=== PATIENT | female | born 1990 | race African-American/Black ===

== ENCOUNTER 2016-10-08 21:34 | Emergency (ER) | payer MEDICAID ==
[2016-10-08 21:55] VITALS: BP 112/64
--- NOTE | 2016-10-08 21:57 | ER Document Report ---
ED Medical Screen (RME) - General Stated Complaint: FOOT PAIN Mode of Arrival: Wheelchair Information source: Patient Notes: Patient presents to the emergency department with complaints of left foot pain. C/O rolled foot yesterday. C/O pain when walking. Taking ibuprofen without pain. He I have greeted and performed a rapid initial assessment of this patient. A comprehensive ED assessment and evaluation of the patient, analysis of test results and completion of the medical decision making process will be conducted by additional ED providers. Past Medical History - Immunizations Hx Diphtheria, Pertussis, Tetanus Vaccination: Yes
[2016-10-08] MEDS ORDERED: OXYCODONE-ACETAMINOPHEN 5-325 MG TABLET PO ONE (23:22)
--- NOTE | 2016-10-08 23:28 | ER Document Report ---
ED Extremity Problem, Lower - General Chief Complaint: Foot Pain Stated Complaint: FOOT PAIN Mode of Arrival: Wheelchair Information source: Patient Notes: Patient is a 25-year-old female who presents to the ER today for injury to left foot yesterday while she was running, chasing her children outside, playing and rolled her foot inwards. Patient states that she has been hurting since that time and that it "hurts a lot" to bear weight on the foot. She denies any swelling, bruising, numbness or tingling. TRAVEL OUTSIDE OF THE [place] IN LAST 30 DAYS: No - Related Data Allergies/Adverse Reactions: No Known Allergies Allergy (Verified 10/08/16 21:56) Past Medical History - General Information source: Patient - Social History Smoking Status: Never Smoker Chew tobacco use (# tins/day): No Frequency of alcohol use: None Drug Abuse: None Family History: Reviewed & Not Pertinent Patient has suicidal ideation: No Patient has homicidal ideation: No Renal/ Medical History: Denies: Hx Peritoneal Dialysis - Immunizations Hx Diphtheria, Pertussis, Tetanus Vaccination: Yes Review of Systems - Review of Systems Constitutional: No symptoms reported EENT: No symptoms reported Cardiovascular: No symptoms reported Respiratory: No symptoms reported Gastrointestinal: No symptoms reported Genitourinary: No symptoms reported Female Genitourinary: No symptoms reported Musculoskeletal: See HPI Skin: No symptoms reported Hematologic/Lymphatic: No symptoms reported Neurological/Psychological: No symptoms reported Physical Exam - Vital signs Vitals: Temp Pulse Resp BP Pulse Ox 99.2 F 64 18 112/64 100 10/08/16 21:52 10/08/16 21:52 10/08/16 21:52 10/08/16 21:52 10/08/16 21:52 - Notes Notes: PHYSICAL EXAMINATION: GENERAL: Obviously uncomfortable, but in no acute distress. HEAD: Atraumatic, normocephalic. EYES: Pupils equal round and reactive to light, extraocular movements intact, sclera anicteric, conjunctiva are normal. NECK: Normal range of motion, supple without lymphadenopathy LUNGS: CTAB and equal. No wheezes rales or rhonchi. HEART: Regular rate and rhythm without murmurs EXTREMITIES: Normal range of motion but with pain to the dorsal left foot, tender over dorsal left foot entirely but moreso to the center of the foot over tarsal bones, no pitting edema. No cyanosis. NEUROLOGICAL: Cranial nerves grossly intact. Normal sensory/motor exams. PSYCH: Normal mood, normal affect. SKIN: Warm, Dry, normal turgor, no ecchymosis, rashes or lesions noted Course - Re-evaluation Re-evalutation: 10/08/16 23:26 X-ray reveals a possible navicular fracture with a linear lucency seen on x- ray. Patient placed in an Jose Alfredo wrap in a postop shoe, given crutches, pain medication and orthopedic information to follow-up with. She states she will call first thing in the morning. - Vital Signs Vital signs: Temp Pulse Resp BP Pulse Ox 99.2 F 64 18 112/64 100 10/08/16 21:52 10/08/16 21:52 10/08/16 21:52 10/08/16 21:52 10/08/16 21:52 Discharge - Discharge Clinical Impression: Closed navicular fracture of left foot Qualifiers: Encounter type: initial encounter Fracture alignment: nondisplaced Qualified Code(s): S92.255A - Nondisplaced fracture of navicular [scaphoid] of left foot, initial encounter for closed fracture Condition: Stable Disposition: HOME, SELF-CARE Additional Instructions: Return immediately for any new or worsening symptoms. Follow up with orthopedics, call tomorrow to make followup appointment. Orthopedic Office [facility] [address] [place] [address] phone: [phone] Prescriptions: Oxycodone HCl/Acetaminophen [Percocet 5-325 mg Tablet] 1 - 2 tab PO Q4H PRN #15 tablet PRN Reason:
== END 2016-10-09 01:05 | disposition home or self-care (01) ==
LOC: ER 21:34
DX: S92.255A Nondisplaced fracture of navicular [scaphoid] of left foot, initial encounter for closed fracture (principal); M79.672 Pain in left foot; X50.0XXA Overexertion from strenuous movement or load, initial encounter; Y93.89 Activity, other specified; Y92.007 Garden or yard of unspecified non-institutional (private) residence as the place of occurrence of the external cause
CPT/HCPCS: 99283

== ENCOUNTER 2017-02-24 19:52 | Emergency (ER) | payer MEDICAID ==
--- NOTE | 2017-02-24 20:59 | RADIOLOGY REPORT (SQ) ---
EXAM DESCRIPTION: SHOULDER RIGHT 2 OR MORE VIEWS COMPLETED DATE/TIME: 02/24/2017 8:52 pm REASON FOR STUDY: injury COMPARISON: None. NUMBER OF VIEWS: Three views. TECHNIQUE: Internal rotation, external rotation, and Y view images acquired of the right shoulder. LIMITATIONS: None. FINDINGS: MINERALIZATION: Normal. BONES: No acute fracture or dislocation. No worrisome bone lesions. JOINTS: No dislocation. VISUALIZED LUNGS AND RIBS: No pneumothorax. No rib fracture. SOFT TISSUES: No radiopaque foreign body. OTHER: No other significant finding. IMPRESSION: NEGATIVE STUDY OF THE RIGHT SHOULDER. NO RADIOGRAPHIC EVIDENCE OF ACUTE INJURY. TECHNICAL DOCUMENTATION: JOB ID: [id number]- All Rights Reserved
[2017-02-24] MEDS ORDERED: DIAZEPAM 5 MG TABLET PO ONE (21:15)
[2017-02-24] MEDS ORDERED: IBUPROFEN 600 MG TABLET PO ONE (21:15)
--- NOTE | 2017-02-24 21:20 | ER Document Report ---
HPI - HPI Patient complains to provider of: Right shoulder injury Pain Level: 5 Context: Patient is a 26-year-old female who comes emergency department for chief complaint of right shoulder pain. She states yesterday she was lifting furniture up and down a stairway, she states she also ran into the wall with her right shoulder. She denies feeling a sharp pain or a pop, she states that symptoms worsened today. She denies any other injuries or locations of pain. LMP within the past month - DERM Skin Color: Normal Past Medical History - General Information source: Patient - Social History Smoking Status: Never Smoker Drug Abuse: None Lives with: Family Family History: Reviewed & Not Pertinent Patient has suicidal ideation: No Patient has homicidal ideation: No - Medical History Medical History: Negative Renal/ Medical History: Denies: Hx Peritoneal Dialysis Surgical Hx: Negative - Immunizations Hx Diphtheria, Pertussis, Tetanus Vaccination: Yes Vertical Provider Document - CONSTITUTIONAL General Appearance: WD/WN - Patient holding her right shoulder close to her body but otherwise she does not appear to be in any distress - INFECTION CONTROL TRAVEL OUTSIDE OF THE [place] IN LAST 30 DAYS: No - HEENT HEENT: Atraumatic, Normocephalic - NECK Neck: Normal Inspection - RESPIRATORY Respiratory: Breath Sounds Normal, No Respiratory Distress O2 Sat by Pulse Oximetry: 100 - CARDIOVASCULAR Cardiovascular: Regular Rate, Regular Rhythm - GI/ABDOMEN Gastrointestinal: Abdomen Soft, Abdomen Non-Tender - BACK Back: Normal Inspection - MUSCULOSKELETAL/EXTREMETIES Musculoskeletal/Extremeties: MAEW, FROM, Tender - Patient with pain lifting her arm up in full range of motion but she can perform full range of motion with the right arm, there is tenderness over the right AC joint and also over the posterior aspect of the shoulder, no ecchymosis, deformity, or other abnormality. Normal distal neurovascular exam. - NEURO Level of Consciousness: Awake, Alert, Appropriate Course - Re-evaluation Re-evalutation: x-ray imaging shows no acute abnormality. Suspect patient sprained her shoulder. Unclear if rotator cuff tear, but seems unlikely with full ROM. patient was given a sling after discussion, shown to take it out regularly, discussed treatment, discussed follow-up, discussed return precautions. Patient states understanding and agreement. - Vital Signs Vital signs: Temp Pulse Resp BP Pulse Ox 98.8 F 61 16 123/71 100 02/24/17 20:06 02/24/17 20:06 02/24/17 20:06 02/24/17 20:06 02/24/17 20:06 Procedures - Immobilization right shoulder Pre-Proc Neuro Vasc Exam: Normal Immobilizer type: Sling Performed by: PCT Post-Proc Neuro Vasc Exam: Normal Alignment checked and good: Yes Discharge - Discharge Clinical Impression: Right shoulder injury Qualifiers: Encounter type: initial encounter Qualified Code(s): S49.91XA - Unspecified injury of right shoulder and upper arm, initial encounter Condition: Stable Disposition: HOME, SELF-CARE Additional Instructions: X-ray does not show dislocation, fracture, or shoulder separation. Examination is consistent with a sprain of the AC joint of the shoulder and strain of the rotator cuff. Use the sling for comfort if needed, take out frequently during the day and perform range of motion exercises as shown to avoid a frozen shoulder Take the naproxen and Robaxin as directed, apply ice to the shoulder 3-4 times a day for 10-15 minutes. Follow up with primary care. Orthopedic follow-up if shoulder pains continue Return to emergency department for any concerning or worsening symptoms Prescriptions: Methocarbamol [Robaxin 750 mg Tablet] 750 mg PO Q6 #20 tablet Naproxen 500 mg PO BID #20 tablet Referrals: MARCELA SPICER MD [ACTIVE STAFF] - Follow up as needed
[2017-02-24 21:25] VITALS: BP 114/81
== END 2017-02-24 21:26 | disposition home or self-care (01) ==
LOC: ER 19:52
DX: S49.91XA Unspecified injury of right shoulder and upper arm, initial encounter (principal); M25.511 Pain in right shoulder; W22.01XA Walked into wall, initial encounter
CPT/HCPCS: 99283; 73030; J3490 ×2

== ENCOUNTER 2018-03-27 15:40 | Emergency (ER) | payer MEDICAID ==
[2018-03-27 16:07] VITALS: BP 98/56
[2018-03-27] MEDS ORDERED: IBUPROFEN 600 MG TABLET PO ONE (16:37)
--- NOTE | 2018-03-27 16:40 | ER Document Report ---
ED General - General Chief Complaint: Back Pain Stated Complaint: BACK PAIN TRAVEL OUTSIDE OF THE [place] IN LAST 30 DAYS: No - HPI Notes: 27-year-old female presents with right thoracic back pain. States she woke up this morning with soreness in her right parathoracic region near the upper thoracic spine. No direct trauma but is been quite active with her kids. Worse when she makes a pushing or rolling motion. No fever, chills or sweats. No direct trauma. Gradual onset. Nonradiating. No other modifying factors, no other associated symptoms, no other provocative or palliative factors. - Related Data Allergies/Adverse Reactions: No Known Allergies Allergy (Verified 10/08/16 21:56) Past Medical History - Social History Smoking Status: Never Smoker Family History: Reviewed & Not Pertinent - Medical History Medical History: Negative Renal/ Medical History: Denies: Hx Peritoneal Dialysis - Immunizations Hx Diphtheria, Pertussis, Tetanus Vaccination: Yes Review of Systems - Review of Systems Notes: Review of systems as in history of present illness, otherwise no significant headache, chest pain, abdominal pain. Physical Exam - Vital signs Vitals: Temp Pulse Resp BP Pulse Ox 98.5 F 67 18 98/56 L 99 03/27/18 16:05 03/27/18 16:05 03/27/18 16:05 03/27/18 16:05 03/27/18 16:05 - Notes Notes: General: Well devloped, no acute distress. HEENT: Normocephalic, atraumatic. Pupils equal round reactive to light. Mucosa moist. No JVD. Chest: No trauma, normal excursion. Respiratory: Good air exchange, normal excursion. Cardiac: Regular rhythm Abdomen: Soft, benign. Nondistended. Back: No asymmetry or gross abnormality. There is reproducible right parathoracic muscle tenderness, and pain with range of motion. No point vertebral tenderness Motor: Grossly normal power and tone. Neurologic: Alert, nonfocal. Vascular: Well perfused Skin: No petechiae or purpura Course - Re-evaluation Re-evalutation: 03/27/18 16:38 Well-appearing female with likely thoracic muscle strain, no direct trauma, no bony tenderness. Will proceed with treatment with Flexeril, NSAIDs, outpatient follow-up. - Vital Signs Vital signs: Temp Pulse Resp BP Pulse Ox 98.5 F 67 18 98/56 L 99 03/27/18 16:05 03/27/18 16:05 03/27/18 16:05 03/27/18 16:05 03/27/18 16:05 Discharge - Discharge Clinical Impression: Thoracic myofascial strain Qualifiers: Encounter type: initial encounter Qualified Code(s): S29.019A - Strain of muscle and tendon of unspecified wall of thorax, initial encounter Condition: Good Disposition: HOME, SELF-CARE Instructions: Muscle Strain ([facility]) Prescriptions: Cyclobenzaprine HCl [Flexeril 10 mg Tablet] 10 mg PO TIDP PRN #15 tab NS PRN Reason: Naproxen 500 mg PO Q12 PRN #12 tablet PRN Reason:
== END 2018-03-27 16:51 | disposition home or self-care (01) ==
LOC: ER 15:40
DX: S29.019A Strain of muscle and tendon of unspecified wall of thorax, initial encounter (principal); M54.9 Dorsalgia, unspecified; M54.6 Pain in thoracic spine; X58.XXXA Exposure to other specified factors, initial encounter
CPT/HCPCS: 99283; J3490

== ENCOUNTER 2018-11-05 13:43 | Emergency (ER) | payer MEDICAID ==
[2018-11-05 13:56] VITALS: BP 95/57
[2018-11-05] MEDS ORDERED: LIDOCAINE 2% VISCOUS SOLN 20 ML UDCUP PO ONE (14:55)
[2018-11-05] MEDS ORDERED: AMOXICILLIN TRIHYDRATE 500 MG CAPSULE PO ONE (14:55)
[2018-11-05] MEDS ORDERED: IBUPROFEN 800 MG TABLET PO ONE (14:55)
--- NOTE | 2018-11-05 15:00 | ER Document Report ---
ED Oral Problem - General Chief Complaint: Toothache Stated Complaint: TOOTH PAIN Time Seen by Provider: 11/05/18 14:29 Mode of Arrival: Ambulatory Information source: Patient Notes: 27-year-old female presented to ED for complaint of dental pain since yesterday. She states she has a dental appointment next week to have the rest of her teeth pulled out. She states she had 3 babies in quick succession and the doctor told her that her dental pain and problems is because she did not take her vitamins as she was instructed in this because all of her teeth to decay. Mother states she also smokes does not take vitamins as he does not eat properly and does not brush her teeth. Patient is alert oriented respirations regular and unlabored speaking in full sentences. TRAVEL OUTSIDE OF THE [place] IN LAST 30 DAYS: No - HPI Patient complains to provider of: Toothache Onset: Other - Interpreted by the time Onset: Gradual Quality of pain: Sharp, Throbbing Severity: Severe Pain Level: 5 Associated symptoms: Toothache Worsened by: Cold Relieved by: Nothing Similar symptoms previously: Yes Recently seen / treated by doctor/dentist: Yes - Related Data Allergies/Adverse Reactions: No Known Allergies Allergy (Verified 11/05/18 13:44) Past Medical History - General Information source: Patient - Social History Smoking Status: Current Every Day Smoker Cigarette use (# per day): Yes - 4 cigs a day Chew tobacco use (# tins/day): No Smoking Education Provided: Yes - 4 min Frequency of alcohol use: None Drug Abuse: None Lives with: Family Family History: Reviewed & Not Pertinent Patient has suicidal ideation: No Patient has homicidal ideation: No - Past Medical History Cardiac Medical History: Reports: None Pulmonary Medical History: Reports: None EENT Medical History: Reports: None Neurological Medical History: Reports: None Endocrine Medical History: Reports: None Renal/ Medical History: Reports: None Malignancy Medical History: Reports: None GI Medical History: Reports: None Musculoskeletal Medical History: Reports None Skin Medical History: Reports None Psychiatric Medical History: Reports: None Traumatic Medical History: Reports: None Infectious Medical History: Reports: None Past Surgical History: Reports: Hx Oral Surgery - Immunizations Immunizations up to date: Yes Hx Diphtheria, Pertussis, Tetanus Vaccination: Yes Review of Systems - Review of Systems Constitutional: No symptoms reported EENT: Mouth pain, Dental problem Cardiovascular: No symptoms reported Respiratory: No symptoms reported Gastrointestinal: No symptoms reported Genitourinary: No symptoms reported Female Genitourinary: No symptoms reported Musculoskeletal: No symptoms reported Skin: No symptoms reported Hematologic/Lymphatic: No symptoms reported Neurological/Psychological: No symptoms reported Physical Exam - Vital signs Vitals: Temp Pulse Resp BP Pulse Ox 99.1 F 84 16 95/57 L 99 11/05/18 13:55 11/05/18 13:55 11/05/18 13:55 11/05/18 13:55 11/05/18 13:55 Interpretation: Normal - General General appearance: Appears well, Alert - HEENT Head: Normocephalic, Atraumatic Eyes: Normal Pupils: PERRL Ears: Normal External canal: Normal Tympanic membrane: Normal Sinus: Normal Nasal: Normal Mouth/Lips: Caries Teeth diagram: 1 - These are the only teeth in her mouth and they are black a down to the gum. She states she has an appointment to get the rest of these teeth removed in another week but the pain is severe today. Pharynx: Normal Neck: Normal - Respiratory Respiratory status: No respiratory distress Chest status: Nontender Breath sounds: Normal Chest palpation: Normal - Cardiovascular Rhythm: Regular Heart sounds: Normal auscultation Murmur: No - Abdominal Inspection: Normal Distension: No distension Bowel sounds: Normal Tenderness: Nontender Organomegaly: No organomegaly - Back Back: Normal, Nontender - Extremities General upper extremity: Normal inspection, Nontender, Normal color, Normal ROM, Normal temperature General lower extremity: Normal inspection, Nontender, Normal color, Normal ROM, Normal temperature, Normal weight bearing. No: Thania's sign - Neurological Neuro grossly intact: Yes Cognition: Normal Orientation: AAOx4 Eloise Coma Scale Eye Opening: Spontaneous [place] Coma Scale Verbal: Oriented Eloise Coma Scale Motor: Obeys Commands Eloise Coma Scale Total: 15 Speech: Normal Motor strength normal: LUE, RUE, LLE, RLE Sensory: Normal - Psychological Associated symptoms: Normal affect, Normal mood - Skin Skin Temperature: Warm Skin Moisture: Dry Skin Color: Normal Course - Re-evaluation Re-evalutation: 11/05/18 15:06 Presentation is most consistent with likely an infected tooth. Airway is patent. Vitals within normal limits. Patient is able swallow without any difficulty. There is no significant facial swelling. No evidence of Jam angina, apical abscess, or airway obstruction. Patient will be started on antibiotics. I've instructed to follow-up with dentistry as earliest ability for definitive management. At this time will discharge with return precautions and follow-up recommendations. Verbal discharge instructions given a the bedside and opportunity for questions given. Medication warnings reviewed. Patient is in agreement with this plan and has verbalized understanding of return precautions and the need for primary care follow-up in the next 24-72 hours. - Vital Signs Vital signs: Temp Pulse Resp BP Pulse Ox 99.1 F 84 16 95/57 L 99 11/05/18 13:55 11/05/18 13:55 11/05/18 13:55 11/05/18 13:55 11/05/18 13:55 Discharge - Discharge Clinical Impression: Pain due to dental caries Condition: Stable Disposition: HOME, SELF-CARE Additional Instructions: TOOTHACHE: Your pain is due to dental decay. The tooth must be repaired in order for you to feel better. You will, therefore, be referred to a dentist. We do not have dentists on the staff at [facility]. Severe swelling or drainage around a tooth usually means a dental abscess. This also requires evaluation and treatment by the dentist, but antibiotics may be prescribed while awaiting dental treatment. You should be rechecked immediately if you develop major swelling of the face, increasing pain, a lump in the jaw or gums, headache, difficulty swallowing, or fever. Amoxicillin Amoxicillin is a member of the penicillin family. It covers the germs likely to cause ear, bronchial, and urinary infections better than plain penicillin. Amoxicillin can be taken without regard to meals. Nausea after taking the medication is rare, but can occur. Diarrhea can occur, particularly in small children. Vaginal yeast infections and oral thrush in infants are also common. Contact your physician if these problems occur. Allergy to penicillins is common. If you have had an allergic reaction to any drug of the penicillin family, you should never take any other penicillin. Notify your doctor at once if you develop hives, itching, swelling, faintness, or shortness of breath. Less serious side effects can include nausea or diarrhea. Ibuprofen Ibuprofen is an excellent, safe drug for pain control. In addition, it has potent antiinflammatory effects which are beneficial, especially in the treatment of injuries, arthritis, or tendonitis. It's best to take ibuprofen with food. Persons with ulcer disease or allergy to aspirin should notify their physician of this before taking ibuprofen. Take the medication exactly as prescribed. Don't take additional doses unless instructed to do so by your doctor. If you develop wheezing, shortness of breath, hives, faintness, stomach pain, vomiting, or dark black stools, retur n for re-evaluation at once. You have been given a syringe of viscous lidocaine. You can split a small amount on your finger and rub it on the gums where your dental pain is every 3-4 hours for your dental pain. Please be sure to keep your appointment with the dentist. FOLLOW-UP CARE: You have been referred for follow-up care to the dentists listed below. Call the dentists office for an appointment as you were instructed or within the next two days. If you experience worsening or a significant change in your symptoms, notify the physician immediately or return to the Emergency Department at any time for re-evaluation. [facility] [address] [place], [place] [phone] [facility] [address] [place] [address] Formerly [facility] [address] [facility] [address] [facility] [address] [facility] [email or web address] [address] [place] [address] Wednesday- 8:00am to 5:00 pm Will see patients from other [facility]. Charges based on income and family size and accepts Medicare, Medicaid, and Insurances Will pull molars [facility]ics [facility] [id number] Hours of Operation 8:00 am - 4:30 pm weekdays The following dental offices accept Medicaid: [facility] Dr. Mitchell Dr. Mao Dr. Orellana Dr. Juan Jose Juan Mejia, [place], and Bubba oral surgery Dr. Lima ([place]) Dr. Stanton ([place]) [facility] Drs. Garcia and Dwayne ([place]) Dr. Hall ([place]) [facility] Dr. Leigh ([place]) Drs. [place] and ([place]) Medicaid Care Line Prescriptions: Amoxicillin Trihydrate [Amoxil 875 mg Tablet] 1 tab PO BID #20 tablet Ibuprofen [Motrin 800 mg Tablet] 800 mg PO Q8H PRN #30 tab PRN Reason: Forms: Smoking Cessation Education
== END 2018-11-05 15:37 | disposition home or self-care (01) ==
LOC: ER 13:43
DX: K02.9 Dental caries, unspecified (principal); K08.89 Other specified disorders of teeth and supporting structures; F17.210 Nicotine dependence, cigarettes, uncomplicated; Z71.6 Tobacco abuse counseling
CPT/HCPCS: 99406; 99282; J3490 ×2

== ENCOUNTER 2019-11-30 20:46 | Inpatient (IN) | payer BC, MEDICAID ==
[2019-11-30] MEDS ORDERED: NORMAL SALINE 1000 ML 1,000 ML IV ONE (23:53)
[2019-11-30] MEDS ORDERED: ONDANSETRON HCL INJ/PF 4 MG/2 ML SDV IV ONE (23:54)
--- NOTE | 2019-11-30 23:56 | ER Document Report ---
ED Fever - General Chief Complaint: Fever Stated Complaint: FEVER Time Seen by Provider: 11/30/19 23:40 Mode of Arrival: Medic Information source: Patient Notes: Patient presents stating that she had chills and body aches that started yesterday. Patient states she has had some nausea. Patient denies any vomiting or diarrhea. Patient denies any cough or cold symptoms. Patient came via EMS and had a fever of 103. Patient had been given a liter of fluids prior to arrival. Patient denies any cough or congestion symptoms. Patient denies any abdominal pain. Patient states that occasionally she has had some discomfort with urination. TRAVEL OUTSIDE OF THE [place] IN LAST 30 DAYS: No - HPI Onset: Yesterday Onset/Duration: Worse Quality of pain: Achy Pain Level: 3 Context: Nausea/vomiting. denies: Congestion, Cough Associated symptoms: Chills, Fever, Nausea, Sweating. denies: Nonproductive cough, Productive cough, Diarrhea, Vomiting, Shortness of breath Similar symptoms previously: No Recently seen / treated by doctor: No - Related Data Allergies/Adverse Reactions: No Known Allergies Allergy (Verified 09/05/19 18:45) Past Medical History - General Information source: Patient - Social History Smoking Status: Never Smoker Frequency of alcohol use: None Drug Abuse: None Occupation: None Family History: Reviewed & Not Pertinent Patient has suicidal ideation: No Patient has homicidal ideation: No - Medical History Medical History: Negative Renal/ Medical History: Denies: Hx Peritoneal Dialysis Past Surgical History: Reports: Hx Oral Surgery - Immunizations Immunizations up to date: Yes Hx Diphtheria, Pertussis, Tetanus Vaccination: Yes Review of Systems - Review of Systems Constitutional: Chills, Fever EENT: No symptoms reported Cardiovascular: Dizziness. denies: Chest pain Respiratory: No symptoms reported. denies: Cough, Short of breath Gastrointestinal: Nausea. denies: Abdominal pain, Diarrhea, Vomiting Genitourinary: Dysuria, Flank pain. denies: Hematuria Female Genitourinary: No symptoms reported. denies: Vaginal discharge Musculoskeletal: Back pain Skin: No symptoms reported Hematologic/Lymphatic: No symptoms reported Neurological/Psychological: No symptoms reported Physical Exam - Vital signs Vitals: Resp 12 11/30/19 20:56 - General General appearance: Alert In distress: None - HEENT Head: Normocephalic, Atraumatic Eyes: Normal Conjunctiva: Normal Ears: Normal External canal: Normal Nasal: Normal Mouth/Lips: Normal Mucous membranes: Normal Pharynx: Normal. No: Erythema Neck: Normal, Supple. No: Lymphadenopathy, Meningismus - Respiratory Respiratory status: No respiratory distress Chest status: Nontender Breath sounds: Normal. No: Rales, Rhonchi, Stridor, Wheezing Chest palpation: Normal - Cardiovascular Rhythm: Regular Heart sounds: S1 appreciated, S2 appreciated - Abdominal Inspection: Normal Distension: No distension Bowel sounds: Normal Tenderness: Nontender Organomegaly: No organomegaly - Back Back: CVA tenderness - Right - Extremities General upper extremity: Normal inspection, Normal ROM General lower extremity: Normal inspection, Normal ROM - Neurological Neuro grossly intact: Yes Cognition: Normal [place] Coma Scale Eye Opening: Spontaneous [place]oise Coma Scale Verbal: Oriented [place] Coma Scale Motor: Obeys Commands [place] Coma Scale Total: 15 - Psychological Associated symptoms: Normal affect, Normal mood - Skin Skin Temperature: Warm Skin Moisture: Dry Skin Color: Normal Course - Re-evaluation Re-evalutation: 12/01/19 01:00 Patient bradycardic and hypotensive. IV fluids continue to infuse. Patient with UTI, mild leukocytosis and right flank pain worrisome for pyelonephritis. Patient sinus bradycardia with a rate of 45. 12/01/19 01:[address] Vickers regarding need for admission, Dr. Vickers was concerned with patient's hypotension and request consultation with recycle driver. Spoke with Jabier Rosen NP who agrees to evaluate patient for admission. 12/01/19 02:20 Consulted with Jabier Rosen NP who evaluated patient. Recommends additional 1 to 2 L of IV fluid at this time to help with patient's dehydration. Patient's current blood pressure is 130/97, he does not feel that patient requires ICU placement at this time. He is agreeable to be consulted again if patient becomes hypotensive. 12/01/19 03:09 Patient continues with pressure 83/44. Patient reports some nausea as well as right flank tenderness. Dr. llamas to bedside for examination. Patient's IV fluids changed to a maintenance rate. 12/01/19 06:20 Ultrasound report reviewed, patient with normal LFTs and no elevation of lipase, no concern for any acute cholecystitis or choledocholithiasis. Patient without any abdominal tenderness. Patients blood pressure 90s/50s at this time. Consulted with Dr. Vickers for admission, Dr. Vickers states that he will pass information along and that a dayshift hospitalist will be down to see patient and make a bed determination after they have evaluated patient. 12/01/19 08:14 Jabier LEMOS spoke with the hospitalist who states that Dr. Avila she will be by to evaluate patient. - Vital Signs Vital signs: Temp Pulse Resp BP Pulse Ox 98.7 F 46 L 16 82/40 L 99 12/01/19 23:40 12/02/19 02:00 12/01/19 23:40 12/01/19 23:40 12/01/19 23:40 - Laboratory Result Diagrams: 12/01/19 00:21 12/01/19 00:21 Laboratory results interpreted by me: 11/30/19 12/01/19 12/01/19 22:49 00:21 00:21 WBC 12.6 H Hgb 11.1 L Hct 32.5 L Absolute Neuts (auto) 9.5 H Sodium 136.8 L Albumin 3.4 L Urine Protein 30 H Urine Blood LARGE H Urine Nitrite POSITIVE H Urine Urobilinogen 2.0 H Ur Leukocyte Esterase LARGE H Labs- Entire Visit 11/30/19 12/01/19 12/01/19 22:49 00:18 00:18 WBC RBC Hgb Hct MCV MCH MCHC RDW Plt Count Lymph % (Auto) [place] % (Auto) Eos % (Auto) Baso % (Auto) Absolute Neuts (auto) Absolute Lymphs (auto) Absolute Monos (auto) Absolute Eos (auto) Absolute Basos (auto) Seg Neutrophils % PT INR VBG pH 7.41 VBG pCO2 42.8 VBG HCO3 26.8 VBG Base Excess 1.9 Sodium Potassium Chloride Carbon Dioxide Anion Gap BUN Creatinine Est GFR ( Amer) Est GFR (MDRD) Non-Af Glucose Lactic Acid Calcium Total Bilirubin Direct Bilirubin Neonat Total Bilirubin Neonat Direct Bilirubin Neonat Indirect Bili AST ALT Alkaline Phosphatase Total Protein Albumin Lipase Serum HCG, Qual NEGATIVE Urine Color YELLOW Urine Appearance SLIGHTLY-CLOUDY Urine pH 6.0 Ur Specific [place] 1.005 Urine Protein 30 H Urine Glucose (UA) NEGATIVE Urine Ketones NEGATIVE Urine Blood LARGE H Urine Nitrite POSITIVE H Urine Bilirubin NEGATIVE Urine Urobilinogen 2.0 H Ur Leukocyte Esterase LARGE H Urine WBC (Auto) 114 Urine RBC (Auto) >182 Urine Bacteria (Auto) 3+ Urine WBC Clumps MOD Squamous Epi Cells Auto <1 Urine Mucus (Auto) RARE Urine Ascorbic Acid NEGATIVE Influenza A (Rapid) Influenza B (Rapid) Group A Strep Rapid 12/01/19 12/01/19 12/01/19 00:21 00:21 00:21 WBC 12.6 H RBC 3.73 Hgb 11.1 L Hct 32.5 L MCV 87 MCH 29.6 MCHC 34.0 RDW 13.8 Plt Count 155 Lymph % (Auto) 14.7 [place] % (Auto) 9.9 Eos % (Auto) 0.0 Baso % (Auto) 0.1 Absolute Neuts (auto) 9.5 H Absolute Lymphs (auto) 1.8 Absolute Monos (auto) 1.2 Absolute Eos (auto) 0.0 Absolute Basos (auto) 0.0 Seg Neutrophils % 75.3 PT 15.0 INR 1.17 VBG pH VBG pCO2 VBG HCO3 VBG Base Excess Sodium Potassium Chloride Carbon Dioxide Anion Gap BUN Creatinine Est GFR ( Amer) Est GFR (MDRD) Non-Af Glucose Lactic Acid 0.8 Calcium Total Bilirubin Direct Bilirubin Neonat Total Bilirubin Neonat Direct Bilirubin Neonat Indirect Bili AST ALT Alkaline Phosphatase Total Protein Albumin Lipase Serum HCG, Qual Urine Color Urine Appearance Urine pH Ur Specific [place] Urine Protein Urine Glucose (UA) Urine Ketones Urine Blood Urine Nitrite Urine Bilirubin Urine Urobilinogen Ur Leukocyte Esterase Urine WBC (Auto) Urine RBC (Auto) Urine Bacteria (Auto) Urine WBC Clumps Squamous Epi Cells Auto Urine Mucus (Auto) Urine Ascorbic Acid Influenza A (Rapid) Influenza B (Rapid) Group A Strep Rapid 12/01/19 12/01/19 12/01/19 00:21 00:21 00:21 WBC RBC Hgb Hct MCV MCH MCHC RDW Plt Count Lymph % (Auto) [place] % (Auto) Eos % (Auto) Baso % (Auto) Absolute Neuts (auto) Absolute Lymphs (auto) Absolute Monos (auto) Absolute Eos (auto) Absolute Basos (auto) Seg Neutrophils % PT INR VBG pH VBG pCO2 VBG HCO3 VBG Base Excess Sodium 136.8 L Potassium 3.7 Chloride 102 Carbon Dioxide 27 Anion Gap 8 BUN 8 Creatinine 0.83 Est GFR ( Amer) > 60 Est GFR (MDRD) Non-Af > 60 Glucose 93 Lactic Acid Calcium 8.8 Total Bilirubin 1.0 Direct Bilirubin 0.2 Neonat Total Bilirubin Not Reportable Neonat Direct Bilirubin Not Reportable Neonat Indirect Bili Not Reportable AST 18 ALT 8 Alkaline Phosphatase 64 Total Protein 6.9 Albumin 3.4 L Lipase Serum HCG, Qual Urine Color Urine Appearance Urine pH Ur Specific [place] Urine Protein Urine Glucose (UA) Urine Ketones Urine Blood Urine Nitrite Urine Bilirubin Urine Urobilinogen Ur Leukocyte Esterase Urine WBC (Auto) Urine RBC (Auto) Urine Bacteria (Auto) Urine WBC Clumps Squamous Epi Cells Auto Urine Mucus (Auto) Urine Ascorbic Acid Influenza A (Rapid) NEGATIVE Influenza B (Rapid) NEGATIVE Group A Strep Rapid NEGATIVE 12/01/19 12/01/19 12/01/19 01:21 02:58 05:24 WBC RBC Hgb Hct MCV MCH MCHC RDW Plt Count Lymph % (Auto) [place] % (Auto) Eos % (Auto) Baso % (Auto) Absolute Neuts (auto) Absolute Lymphs (auto) Absolute Monos (auto) Absolute Eos (auto) Absolute Basos (auto) Seg Neutrophils % PT INR VBG pH VBG pCO2 VBG HCO3 VBG Base Excess Sodium Potassium Chloride Carbon Dioxide Anion Gap BUN Creatinine Est GFR ( Amer) Est GFR (MDRD) Non-Af Glucose Lactic Acid 0.9 0.7 Calcium Total Bilirubin Direct Bilirubin Neonat Total Bilirubin Neonat Direct Bilirubin Neonat Indirect Bili AST ALT Alkaline Phosphatase Total Protein Albumin Lipase 38.9 Serum HCG, Qual Urine Color Urine Appearance Urine pH Ur Specific [place] Urine Protein Urine Glucose (UA) Urine Ketones Urine Blood Urine Nitrite Urine Bilirubin Urine Urobilinogen Ur Leukocyte Esterase Urine WBC (Auto) Urine RBC (Auto) Urine Bacteria (Auto) Urine WBC Clumps Squamous Epi Cells Auto Urine Mucus (Auto) Urine Ascorbic Acid Influenza A (Rapid) Influenza B (Rapid) Group A Strep Rapid - Diagnostic Test Radiology reviewed: Reports reviewed - EKG Interpretation by Me EKG shows normal: Sinus rhythm Rate: Bradycardia Additional EKG results interpreted by me: 12/01/19 01:00 QTC 395 Discharge - Discharge Clinical Impression: Pyelonephritis, Bradycardia Hypotension Qualifiers: Hypotension type: idiopathic hypotension Qualified Code(s): I95.0 - Idiopathic hypotension Disposition: ADMITTED INPATIENT
[2019-12-01 00:04] LABS: APPEARANCE,URINE SLIGHTLY-CLOUDY; BILIRUBIN,URINE NEGATIVE (NEGATIVE); COLOR,URINE YELLOW; GLUCOSE, URINE NEGATIVE (NEGATIVE); KETONES,URINE NEGATIVE (NEGATIVE); LEUKOCYTE ESTERASE,URINE LARGE (NEGATIVE); NITRITE,URINE POSITIVE (NEGATIVE); PROTEIN,URINE 30 mg/dL (NEGATIVE); URINE SPECIFIC GRAVITY 1.005
--- NOTE | 2019-12-01 00:26 | RADIOLOGY REPORT (SQ) ---
CLINICAL HISTORY: fever COMPARISON: None. TECHNIQUE: XR CHEST 1 VIEW 11/30/2019 11:52 PM CDT FINDINGS: Cardiac silhouette is normal in size. Lungs are clear without consolidation, atelectasis, mass or edema. There is no pleural effusion. There is no pneumothorax. There are no acute osseous findings. IMPRESSION: Clear lungs.
[2019-12-01 00:36] LABS: VENOUS BLOOD BASE EXCESS 1.9 mmol/L; VENOUS BLOOD HCO3 26.8 mmol/L (20-32); VENOUS BLOOD PCO2 42.8 mmHg (35-63); VENOUS BLOOD PH 7.41 (7.30-7.42)
[2019-12-01 00:41] LABS: ABSOLUTE LYMPHOCYTES (AUTO) 1.8 10^3/uL (0.5-4.7); ABSOLUTE MONOCYTES (AUTO) 1.2 10^3/uL (0.1-1.4); ABSOLUTE NEUT (AUTO) 9.5 10^3/uL (1.7-8.2); BASOPHILS % (AUTO) 0.1 % (0-2); HEMATOCRIT 32.5 % (36.0-47.0); HEMOGLOBIN 11.1 g/dL (12.0-15.5); LYMPHOCYTES % (AUTO) 14.7 % (13-45); MEAN CORPUSCULAR HEMOGLOBIN 29.6 pg (27.0-33.4); MEAN CORPUSCULAR VOLUME 87 fl (80-97); MONOCYTES % (AUTO) 9.9 % (3-13); PLATELET COUNT 155 10^3/uL (150-450); RED BLOOD COUNT 3.73 10^6/uL (3.72-5.28); RED CELL DISTRIBUTION WIDTH 13.8 % (11.5-14.0); SEGMENTED NEUTROPHILS % (AUTO) 75.3 % (42-78); TOTAL CELLS COUNTED % (AUTO) 100 %; WHITE BLOOD COUNT 12.6 10^3/uL (4.0-10.5)
[2019-12-01 00:44] LABS: INTERNATIONAL RATION (INR) 1.17
[2019-12-01 00:52] LABS: A TYPE INFLUENZA AG NEGATIVE (NEGATIVE); B INFLUENZA AG NEGATIVE (NEGATIVE)
[2019-12-01 00:54] LABS: ALBUMIN 3.4 g/dL (3.5-5.0); ALKALINE PHOSPHATASE 64 U/L (38-126); ANION GAP 8 (5-19); ASPARTATE AMINO TRANSFERASE 18 U/L (14-36); BILIRUBIN,DIRECT 0.2 mg/dL (0.0-0.4); BLOOD UREA NITROGEN 8 mg/dL (7-20); CALCIUM 8.8 mg/dL (8.4-10.2); CARBON DIOXIDE 27 mmol/L (22-30); CHLORIDE 102 mmol/L (98-107); GLUCOSE 93 mg/dL (75-110); POTASSIUM 3.7 mmol/L (3.6-5.0); TOTAL PROTEIN 6.9 g/dL (6.3-8.2)
[2019-12-01] MEDS ORDERED: CEFTRIAXONE 1 GM/D5W RTU 1 GM/50 ML RTUPB IV ONE (00:56)
[2019-12-01] MEDS ORDERED: NORMAL SALINE 1000 ML 1,000 ML IV ONE (01:23)
[2019-12-01] MEDS ORDERED: RINGERS SOLUTION,LACTATED 1,000 ML IV ONE ×3 (02:45→09:24)
--- NOTE | 2019-12-01 02:52 | Progress Note ---
Provider Note Provider Note: Date/Time of encounter: 12/01/2019 02:00 AM Mrs. Schmidt is a 29-year-old female with no significant past medical history who presented with body aches, fever, chills, and right flank pain with occasional dysuria that has been going on for approximately 2 days time. It is reported by EMS that the patient's temperature was 103 F for which they administered Tylenol and her temperature was 100.7 F upon presentation to the ED at [facility]. She denies being around anyone ill recently to include respiratory symptoms. She has had no water for the past 2 days due to nausea. Work-up demonstrates leukocytosis with a urinalysis indicating urinary tract infection with pyuria and which combined with right sided CVA tenderness is consistent with pyelonephritis. ICU team was asked to evaluate the patient for admission to ICU due to low blood pressure 81/38 for which patient was near completion of a 3rd L of crystalloid infusing when I entered the room (1L via EMS, 2L in ED). Blood pressure already better and over 100 systolic, also noting improved diastolic pressure with fluid. I performed a [id number] ultrasound demonstrating respirophasic changes in bilateral ventricles with deep inspiratory effort as well as complete collapse of the IVC and hepatic vein. Both ventricles are under-filled, have concentric wall motion without any wall motion abnormalities. Physical exam: Constitutional: appears appropriate stated age, well-nourished Neuro: A&O x4, NAD, no pain at this time Pulm: CTA bilaterally, symmetric chest expansion, no chest wall tenderness CV: S1S2, no M/R/G, 1+ radial/DP/PT pulses bilaterally, no edema in any extremities, no JVD GI: active bowel sounds, soft, nondistended, nontender with exception of mild pubic symphasis pain : R flank tenderness, + CVA tenderness R side Psych: normal affect/mood CXR: no acute intrapulmonary process on my read No significant lab findings other than leukocytosis & UTI on urinalysis Recommendations: -Administer 1 to 2 L more of crystalloid solution with a preference of Ringer's lactate to avoid hyperchloremia. -Patient does not need ICU care at this time I anticipate she will be able to safely go to the floor. -Sinus bradycardia of no concern at this time. Could consider telemetry for 12- 24 hrs but I don't feel strongly about this and will leave up to ED and admitting providers. -Continue empiric IV antibiotics. -Recommend IV fluids for maintenance hydration until nausea resolved and able to tolerate PO. Should the patient's clinical condition deteriorate and she becomes hypotensive again, please call the ICU team for reevaluation.
[2019-12-01] MEDS ORDERED: ACETAMINOPHEN 325 MG TABLET PO ONE (03:08)
[2019-12-01] MEDS ORDERED: PROMETHAZINE HCL 25 MG TABLET PO ONE (03:08)
--- NOTE | 2019-12-01 04:56 | RADIOLOGY REPORT (SQ) ---
EXAM DESCRIPTION: CT ABDOMEN PELVIS WITHOUT IV CONTRAST COMPLETED DATE/TME: 12/01/2019 03:18 CLINICAL HISTORY: R flank pain. hcg neg COMPARISON: None Available. TECHNIQUE: CT of the abdomen and pelvis without IV contrast. Evaluation of the solid organs and vasculature is suboptimal due to lack of IV contrast. FINDINGS: Lung Bases: The visualized lung bases are clear. Bones: No destructive bone lesions identified. Abdomen: Liver: The liver has normal size and density. Gallbladder: Layering high density material in the gallbladder lumen. Possible wall thickening of the gallbladder. Spleen, Pancreas, and Adrenal Glands: The spleen, pancreas, and adrenal glands are unremarkable. Kidneys: The kidneys have normal size without evidence of hydronephrosis. No obstructing ureteral calculi. Vasculature: The aorta and IVC have normal caliber and position. Stomach: The stomach and duodenum have normal course. Other: No free intraperitoneal air. No free fluid or lymphadenopathy. Pelvis: Bladder: Urinary bladder is unremarkable. Bowel: No dilated loops of large or small bowel. Moderate amount of stool. Appendix: Normal appendix. Pelvis: Uterus is not enlarged. IMPRESSION: 1. No obstructing ureteral calculus or hydronephrosis. 2. Layering high density material in the gallbladder lumen may represent gallbladder sludge or gallstones. Possible mild gallbladder wall thickening. Right upper quadrant ultrasound would provide additional characterization. This exam was performed according to our departmental dose-optimization program, which includes automated exposure control, adjustment of the mA and/or kV according to patient size and/or use of iterative reconstruction technique.
--- NOTE | 2019-12-01 06:11 | RADIOLOGY REPORT (SQ) ---
EXAM DESCRIPTION: US ABDOMEN LIMITED COMPLETED DATE/TME: 12/01/2019 05:08 CLINICAL HISTORY: 29 years, Female, R flank pain, fever COMPARISON: 12/01/2019 CT TECHNIQUE: Limited right upper quadrant ultrasound LIMITATIONS: None. FINDINGS: The liver is homogenous in echotexture without focal lesion. Layering sludge in the gallbladder lumen. No definitive gallstones. Negative sonographic Sol sign. No gallbladder wall thickening or pericholecystic fluid. CBD measures 1.1 mm. Slices right kidney is unremarkable, however there is a trace of perinephric fluid adjacent to the right kidney.. The abdominal aorta inferior vena cava are unremarkable. There is no ascites IMPRESSION: Layering sludge in the gallbladder lumen. No gallstones. Negative sonographic Sol sign. Trace of perinephric fluid adjacent to the right kidney. Findings are nonspecific. copyright 2010 [employer] [facility] [employer]- All Rights Reserved
[2019-12-01] MEDS ORDERED: ACETAMINOPHEN 325 MG TABLET PO PRN (09:19)
[2019-12-01] MEDS ORDERED: MAG HYDROX/AL HYDROX/SIMETH SUSP 30 ML UDCUP PO PRN (09:19)
[2019-12-01] MEDS ORDERED: ONDANSETRON HCL INJ/PF 4 MG/2 ML SDV IV PRN (09:19)
--- NOTE | 2019-12-01 09:38 | PDOC H&P ---
History of Present Illness Admission Date/PCP: 12/01/19 09:06 WINIFRED LEAL MD Patient complains of: Patient noticed fever and right flank pain starting yesterday History of Present Illness: RAFFAELE BAKER is a 29 year old female who i otherwise healthy and has no history of kidney stones or recurrent urinary tract infections. Yesterday she noticed fever, dysuria without hematuria and right flank pain. She denies nausea and vomiting although she did receive 1 dose of Zofran in the emergency department. Her temperature was 100.7 on admission. She exhibits bradycardia and hypotension. She has received 2 L of fluid and her blood pressure systolic is just greater than 90. I did inquire and she reports that her blood pressure consistently runs on the low side. The patient will be admitted to the hospital service for IV antibiotics. Past Medical History Medical History: None Past Surgical History Past Surgical History: Reports: None Social History Information Source: Patient - Patient is single with 3 children Lives with: Family Smoking Status: Never Smoker Electronic Cigarette use?: No Frequency of Alcohol Use: None Hx Recreational Drug Use: No Hx Prescription Drug Abuse: No - Advance Directive Resuscitation Status: Full Code Surrogate healthcare decision maker:: With children under 18 her parents would be the legal decision makers. Family History Family History: Reviewed & Not Pertinent Parental Family History Reviewed: Yes Children Family History Reviewed: Yes Sibling(s) Family History Reviewed.: Yes Medication/Allergy Home Medications: No Home Medications 12/01/19 Allergies/Adverse Reactions: No Known Allergies Allergy (Verified 09/05/19 18:45) Review of Systems All systems: reviewed and no additional remarkable complaints except as stated Constitutional: PRESENT: as per HPI Physical Exam Vital Signs: Temp Pulse Resp BP Pulse Ox 98 F 16 92/54 L 92 12/01/19 09:01 12/01/19 09:01 12/01/19 09:01 12/01/19 08:51 Intake & Output 11/30/19 12/01/19 12/02/19 06:59 06:59 06:59 Intake Total 3050 Balance 3050 Weight 58.967 kg General appearance: PRESENT: no acute distress, cooperative - Very sleepy due to long stay in the emergency department., well-developed, well-nourished Head exam: PRESENT: atraumatic, normocephalic, other - Several piercings Eye exam: PRESENT: conjunctiva pink, EOMI. ABSENT: nystagmus, scleral icterus Ear exam: PRESENT: normal external ear exam. ABSENT: bleeding, drainage Mouth exam: PRESENT: moist, tongue midline, other - tongue bar Respiratory exam: PRESENT: clear to auscultation ruma, symmetrical, unlabored. ABSENT: accessory muscle use, rales, rhonchi, tachypnea, wheezes Cardiovascular exam: PRESENT: bradycardia - Sinus bradycardia, +S1, +S2, systolic murmur - 1/6. ABSENT: diastolic murmur, gallop GI/Abdominal exam: PRESENT: normal bowel sounds, soft, tenderness - Right flank. ABSENT: distended, guarding, mass Rectal exam: PRESENT: deferred Gentrourinary exam: ABSENT: indwelling catheter Extremities exam: ABSENT: joint swelling, pedal edema Musculoskeletal exam: PRESENT: ambulatory, full ROM, normal inspection. ABSENT: deformity Neurological exam: PRESENT: awake, oriented to person, oriented to place, oriented to time, oriented to situation, CN II-XII grossly intact. ABSENT: alert - Somnolent. Not unexpected due to prolonged stay in the emergency department., motor sensory deficit Psychiatric exam: PRESENT: appropriate affect. ABSENT: agitated, anxious Focused psych exam: ABSENT: delusional, paranoid, restlessness Skin exam: PRESENT: dry, normal color, warm. ABSENT: rash Results Laboratory Results: 12/01/19 00:21 12/01/19 00:21 11/30/19 12/01/19 12/01/19 22:49 00:18 00:18 WBC RBC Hgb Hct MCV MCH MCHC RDW Plt Count Seg Neutrophils % VBG pH 7.41 VBG pCO2 42.8 VBG HCO3 26.8 VBG Base Excess 1.9 Sodium Potassium Chloride Carbon Dioxide Anion Gap BUN Creatinine Est GFR ( Amer) Glucose Lactic Acid Calcium Total Bilirubin AST Alkaline Phosphatase Total Protein Albumin Lipase Serum HCG, Qual NEGATIVE Urine Color YELLOW Urine Appearance SLIGHTLY-CLOUDY Urine pH 6.0 Ur Specific [place] 1.005 Urine Protein 30 H Urine Glucose (UA) NEGATIVE Urine Ketones NEGATIVE Urine Blood LARGE H Urine Nitrite POSITIVE H Ur Leukocyte Esterase LARGE H Urine WBC (Auto) 114 Urine RBC (Auto) >182 12/01/19 12/01/19 12/01/19 00:21 00:21 00:21 WBC 12.6 H RBC 3.73 Hgb 11.1 L Hct 32.5 L MCV 87 MCH 29.6 MCHC 34.0 RDW 13.8 Plt Count 155 Seg Neutrophils % 75.3 VBG pH VBG pCO2 VBG HCO3 VBG Base Excess Sodium 136.8 L Potassium 3.7 Chloride 102 Carbon Dioxide 27 Anion Gap 8 BUN 8 Creatinine 0.83 Est GFR ( Amer) > 60 Glucose 93 Lactic Acid 0.8 Calcium 8.8 Total Bilirubin 1.0 AST 18 Alkaline Phosphatase 64 Total Protein 6.9 Albumin 3.4 L Lipase Serum HCG, Qual Urine Color Urine Appearance Urine pH Ur Specific [place] Urine Protein Urine Glucose (UA) Urine Ketones Urine Blood Urine Nitrite Ur Leukocyte Esterase Urine WBC (Auto) Urine RBC (Auto) 12/01/19 12/01/19 12/01/19 01:21 02:58 05:24 WBC RBC Hgb Hct MCV MCH MCHC RDW Plt Count Seg Neutrophils % VBG pH VBG pCO2 VBG HCO3 VBG Base Excess Sodium Potassium Chloride Carbon Dioxide Anion Gap BUN Creatinine Est GFR ( Amer) Glucose Lactic Acid 0.9 0.7 Calcium Total Bilirubin AST Alkaline Phosphatase Total Protein Albumin Lipase 38.9 Serum HCG, Qual Urine Color Urine Appearance Urine pH Ur Specific [place] Urine Protein Urine Glucose (UA) Urine Ketones Urine Blood Urine Nitrite Ur Leukocyte Esterase Urine WBC (Auto) Urine RBC (Auto) Impressions: Chest X-Ray 11/30/19 23:52 IMPRESSION: Clear lungs. Abdomen/Pelvis CT 12/01/19 03:18 IMPRESSION: 1. No obstructing ureteral calculus or hydronephrosis. 2. Layering high density material in the gallbladder lumen may represent gallbladder sludge or gallstones. Possible mild gallbladder wall thickening. Right upper quadrant ultrasound would provide additional characterization. This exam was performed according to our departmental dose-optimization program, which includes automated exposure control, adjustment of the mA and/or kV according to patient size and/or use of iterative reconstruction technique. Abdomen Ultrasound 12/01/19 05:08 IMPRESSION: Layering sludge in the gallbladder lumen. No gallstones. Negative sonographic Sol sign. Trace of perinephric fluid adjacent to the right kidney. Findings are nonspecific. copyright 2010 [employer]- All Rights Reserved Assessment and Plan - Diagnosis (1) Acute pyelonephritis Is this a current diagnosis for this admission?: Yes Plan: 12/01/2019 Urine culture is pending. The patient will be started on IV Rocephin. No evidence of renal calculi on the CAT scan. We will continue IV fluids. The patient will be on probiotics while on antibiotics. (2) Hyponatremia Is this a current diagnosis for this admission?: Yes Plan: 12/01/2019 Sodium is just below the lower limit normal. Will monitor. Should correct with return to normal diet and IV fluids (3) Anemia Qualifiers: Anemia type: unspecified type Qualified Code(s): D64.9 - Anemia, unspecified Is this a current diagnosis for this admission?: Yes Plan: 12/01/2019 Anemia is mild. MCV is 87. Likely due to mild iron deficiency. No acute work- up is indicated at this time. Will start a multivitamin with iron. (4) Bradycardia Is this a current diagnosis for this admission?: Yes Plan: 12/01/2019 This is likely the patient's baseline. Will monitor on telemetry. I do not expect a significant change. (5) Hypotension Qualifiers: Hypotension type: idiopathic hypotension Qualified Code(s): I95.0 - Idiopathic hypotension Is this a current diagnosis for this admission?: Yes Plan: 12/01/2019 This is likely the patient's baseline. She did report that her blood pressures always run on the low side. We will continue to monitor vital signs. There is no evidence of sepsis as she does not have acute organ failure, her lactic acid is normal, and her vital signs are likely at her baseline. - Time Time Spent with patient: 35 or more minutes Medications reviewed and adjusted accordingly: Yes Anticipated discharge: Home - Inpatient Certification Based on my medical assessment, after consideration of the patient's comorbidities, presenting symptoms, or acuity I expect that the services needed warrant INPATIENT care.: Yes I certify that my determination is in accordance with my understanding of Medicare's requirements for reasonable and necessary INPATIENT services [42 CFR 412.3e].: Yes Medical Necessity: Need For IV Fluids, Need For Continuous Telemetry Monitoring, Need for IV Antibiotics
[2019-12-01] MEDS: CEFTRIAXONE 2 GM/D5W RTU 2 GM/50 ML RTUPB IV SCH (11:33)
[2019-12-01] MEDS: ENOXAPARIN SODIUM INJ 40 MG/0.4 ML DISP.SYRIN SUBCUT SCH (11:33)
[2019-12-01] MEDS ORDERED: TRAMADOL HCL 50 MG TABLET PO PRN (11:39)
[2019-12-01] MEDS: LACTOBACILLUS ACIDOPHILUS 250 MG TAB PO SCH ×2 (11:46→18:21)
[2019-12-01] MEDS: MULTIVITAMINS W-IRON TABLET, CHEWABLE PO SCH (11:47)
[2019-12-01] MEDS: KETOROLAC TROMETHAMINE INJ/PF 30 MG/1 ML SDV IV PRN ×2 (12:56→22:46)
--- NOTE | 2019-12-01 18:26 | EKG REPORT ---
SEVERITY:- BORDERLINE ECG - SINUS BRADYCARDIA LOW VOLTAGE THROUGHOUT : Confirmed by: Marycruz Maldonado MD 01-Dec-2019 18:25:54
[2019-12-01] MEDS: NORMAL SALINE 1000 ML 1,000 ML IV PRN (18:45)
[2019-12-02] MEDS: NORMAL SALINE 1000 ML 1,000 ML IV PRN (03:30)
[2019-12-02 05:48] LABS: ABSOLUTE LYMPHOCYTES (AUTO) 1.6 10^3/uL (0.5-4.7); ABSOLUTE MONOCYTES (AUTO) 1.5 10^3/uL (0.1-1.4); BASOPHILS % (AUTO) 0.1 % (0-2); EOSINOPHILS % (AUTO) 0.1 % (0-6); HEMATOCRIT 29.9 % (36.0-47.0); HEMOGLOBIN 10.3 g/dL (12.0-15.5); LYMPHOCYTES % (AUTO) 15.8 % (13-45); MEAN CORPUSCULAR HEMOGLOBIN 29.1 pg (27.0-33.4); MEAN CORPUSCULAR HGB CONC 34.5 g/dL (32.0-36.0); MEAN CORPUSCULAR VOLUME 85 fl (80-97); PLATELET COUNT 154 10^3/uL (150-450); RED BLOOD COUNT 3.54 10^6/uL (3.72-5.28); RED CELL DISTRIBUTION WIDTH 13.4 % (11.5-14.0); TOTAL CELLS COUNTED % (AUTO) 100 %; WHITE BLOOD COUNT 10.1 10^3/uL (4.0-10.5)
[2019-12-02] MEDS ORDERED: PANTOPRAZOLE SODIUM 20 MG TABLET.DR PO SCH (06:00)
[2019-12-02 06:12] LABS: BLOOD UREA NITROGEN 6 mg/dL (7-20); CALCIUM 7.9 mg/dL (8.4-10.2); CARBON DIOXIDE 26 mmol/L (22-30); CHLORIDE 109 mmol/L (98-107); GLUCOSE 95 mg/dL (75-110)
[2019-12-02 06:17] LABS: ANION GAP 5 (5-19)
[2019-12-02 08:21] VITALS: BP 101/48
--- NOTE | 2019-12-02 09:18 | PDOC DISCHARGE SUMMARY ---
Impression - Admit/DC Date/PCP Admission Date/Primary Care Provider: 12/01/19 09:06 WINIFRED LEAL MD Discharge Date: 12/02/19 - Discharge Diagnosis (1) Acute pyelonephritis Is this a current diagnosis for this admission?: Yes (2) Hyponatremia Is this a current diagnosis for this admission?: Yes (3) Anemia Is this a current diagnosis for this admission?: Yes (4) Bradycardia Is this a current diagnosis for this admission?: Yes (5) Hypotension Is this a current diagnosis for this admission?: Yes - Additional Information Resuscitation Status: Full Code Discharge Diet: Regular Discharge Activity: Activity As Tolerated Referrals: AMARI JERRY MD [PEDIATRICS] - (New patient Someone will call you on Wednesday with appointment.) Prescriptions: Cephalexin [Cephalexin 500 MG Tablet] 500 mg PO TID 14 Days #42 tablet Home Medications: Cephalexin [Cephalexin 500 MG Tablet] 500 mg PO TID 14 Days #42 tablet 12/02/19 Lactobacillus Acidophilus [Bacid 250 mg Tablet] 500 mg PO BID tab 12/02/19 History of Present Illiness History of Present Illness: RAFFAELE BAKER is a 29 year old female who i otherwise healthy and has no history of kidney stones or recurrent urinary tract infections. Yesterday she noticed fever, dysuria without hematuria and right flank pain. She denies nausea and vomiting although she did receive 1 dose of Zofran in the emergency department. Her temperature was 100.7 on admission. She exhibits bradycardia and hypotension. She has received 2 L of fluid and her blood pressure systolic is just greater than 90. I did inquire and she reports that her blood pressure consistently runs on the low side. The patient will be admitted to the hospital service for IV antibiotics. Hospital Course Hospital Course: Unremarkable hospital course. With IV fluids and antibiotics the patient's white blood cell count has normalized and her symptoms are improved. She is stable for discharge. Physical Exam Vital Signs: Temp Pulse Resp BP Pulse Ox 98.2 F 53 L 16 101/48 L 99 12/02/19 07:53 12/02/19 07:53 12/02/19 07:53 12/02/19 07:53 12/02/19 07:53 Intake & Output 12/01/19 12/02/19 12/03/19 06:59 06:59 06:59 Intake Total 3050 4756 Output Total 0 Balance 3050 4754 Weight 58.967 kg 59.9 kg General appearance: PRESENT: no acute distress, cooperative, well-developed Head exam: PRESENT: atraumatic, normocephalic Ear exam: PRESENT: normal external ear exam. ABSENT: bleeding, drainage Respiratory exam: PRESENT: clear to auscultation ruma, symmetrical, unlabored. ABSENT: rales, rhonchi, tachypnea, wheezes Cardiovascular exam: PRESENT: bradycardia, +S1, +S2 GI/Abdominal exam: PRESENT: normal bowel sounds, soft, other - Right flank still slightly tender to percussion. ABSENT: tenderness Rectal exam: PRESENT: deferred Gentrourinary exam: ABSENT: indwelling catheter Musculoskeletal exam: PRESENT: ambulatory, full ROM, normal inspection. ABSENT: deformity Neurological exam: PRESENT: alert, awake, oriented to person, oriented to place, oriented to time, oriented to situation, CN II-XII grossly intact. ABSENT: altered, motor sensory deficit Psychiatric exam: PRESENT: appropriate affect. ABSENT: agitated, anxious Focused psych exam: ABSENT: delusional, paranoid, restlessness Results Laboratory Results: WBC 10.1 10^3/uL (4.0-10.5) 12/02/19 05:03 RBC 3.54 10^6/uL (3.72-5.28) L 12/02/19 05:03 Hgb 10.3 g/dL (12.0-15.5) L 12/02/19 05:03 Hct 29.9 % (36.0-47.0) L 12/02/19 05:03 MCV 85 fl (80-97) 12/02/19 05:03 MCH 29.1 pg (27.0-33.4) 12/02/19 05:03 MCHC 34.5 g/dL (32.0-36.0) 12/02/19 05:03 RDW 13.4 % (11.5-14.0) 12/02/19 05:03 Plt Count 154 10^3/uL (150-450) 12/02/19 05:03 Lymph % (Auto) 15.8 % (13-45) 12/02/19 05:03 [place] % (Auto) 15.0 % (3-13) H 12/02/19 05:03 Eos % (Auto) 0.1 % (0-6) 12/02/19 05:03 Baso % (Auto) 0.1 % (0-2) 12/02/19 05:03 Absolute Neuts (auto) 7.0 10^3/uL (1.7-8.2) 12/02/19 05:03 Absolute Lymphs (auto) 1.6 10^3/uL (0.5-4.7) 12/02/19 05:03 Absolute Monos (auto) 1.5 10^3/uL (0.1-1.4) H 12/02/19 05:03 Absolute Eos (auto) 0.0 10^3/uL (0.0-0.6) 12/02/19 05:03 Absolute Basos (auto) 0.0 10^3/uL (0.0-0.2) 12/02/19 05:03 Seg Neutrophils % 69.0 % (42-78) 12/02/19 05:03 PT 15.0 SEC (11.4-15.4) 12/01/19 00:21 INR 1.17 12/01/19 00:21 VBG pH 7.41 (7.30-7.42) 12/01/19 00:18 VBG pCO2 42.8 mmHg (35-63) 12/01/19 00:18 VBG HCO3 26.8 mmol/L (20-32) 12/01/19 00:18 VBG Base Excess 1.9 mmol/L 12/01/19 00:18 Sodium 139.6 mmol/L (137-145) 12/02/19 05:03 Potassium 4.0 mmol/L (3.6-5.0) 12/02/19 05:03 Chloride 109 mmol/L (98-107) H 12/02/19 05:03 Carbon Dioxide 26 mmol/L (22-30) 12/02/19 05:03 Anion Gap 5 (5-19) 12/02/19 05:03 BUN 6 mg/dL (7-20) L 12/02/19 05:03 Creatinine 0.74 mg/dL (0.52-1.25) 12/02/19 05:03 Est GFR ( Amer) > 60 (>60) 12/02/19 05:03 Est GFR (MDRD) Non-Af > 60 (>60) 12/02/19 05:03 Glucose 95 mg/dL (75-110) 12/02/19 05:03 Lactic Acid 0.7 mmol/L (0.7-2.1) 12/01/19 05:24 Calcium 7.9 mg/dL (8.4-10.2) L 12/02/19 05:03 Magnesium 1.8 mg/dL (1.6-2.3) 12/02/19 05:03 Total Bilirubin 1.0 mg/dL (0.2-1.3) 12/01/19 00:21 Direct Bilirubin 0.2 mg/dL (0.0-0.4) 12/01/19 00:21 Neonat Total Bilirubin Not Reportable 12/01/19 00:21 Neonat Direct Bilirubin Not Reportable 12/01/19 00:21 Neonat Indirect Bili Not Reportable 12/01/19 00:21 AST 18 U/L (14-36) 12/01/19 00:21 ALT 8 U/L (<35) 12/01/19 00:21 Alkaline Phosphatase 64 U/L (38-126) 12/01/19 00:21 Total Protein 6.9 g/dL (6.3-8.2) 12/01/19 00:21 Albumin 3.4 g/dL (3.5-5.0) L 12/01/19 00:21 Lipase 38.9 U/L (23-300) 12/01/19 01:21 Serum HCG, Qual NEGATIVE (NEGATIVE) 12/01/19 00:18 Urine Color YELLOW 11/30/19 22:49 Urine Appearance SLIGHTLY-CLOUDY 11/30/19 22:49 Urine pH 6.0 (5.0-9.0) 11/30/19 22:49 Ur Specific [place] 1.005 11/30/19 22:49 Urine Protein 30 mg/dL (NEGATIVE) H 11/30/19 22:49 Urine Glucose (UA) NEGATIVE mg/dL (NEGATIVE) 11/30/19 22:49 Urine Ketones NEGATIVE mg/dL (NEGATIVE) 11/30/19 22:49 Urine Blood LARGE (NEGATIVE) H 11/30/19 22:49 Urine Nitrite POSITIVE (NEGATIVE) H 11/30/19 22:49 Urine Bilirubin NEGATIVE (NEGATIVE) 11/30/19 22:49 Urine Urobilinogen 2.0 mg/dL (<2.0) H 11/30/19 22:49 Ur Leukocyte Esterase LARGE (NEGATIVE) H 11/30/19 22:49 Urine WBC (Auto) 114 /HPF 11/30/19 22:49 Urine RBC (Auto) >182 /HPF 11/30/19 22:49 Urine Bacteria (Auto) 3+ /HPF 11/30/19 22:49 Urine WBC Clumps MOD /HPF 11/30/19 22:49 Squamous Epi Cells Auto <1 /HPF 11/30/19 22:49 Urine Mucus (Auto) RARE /LPF 11/30/19 22:49 Urine Ascorbic Acid NEGATIVE (NEGATIVE) 11/30/19 22:49 Influenza A (Rapid) NEGATIVE (NEGATIVE) 12/01/19 00:21 Influenza B (Rapid) NEGATIVE (NEGATIVE) 12/01/19 00:21 Group A Strep Rapid NEGATIVE (NEGATIVE) 12/01/19 00:21 Impressions: Chest X-Ray 11/30/19 23:52 IMPRESSION: Clear lungs. Abdomen/Pelvis CT 12/01/19 03:18 IMPRESSION: 1. No obstructing ureteral calculus or hydronephrosis. 2. Layering high density material in the gallbladder lumen may represent gallbladder sludge or gallstones. Possible mild gallbladder wall thickening. Right upper quadrant ultrasound would provide additional characterization. This exam was performed according to our departmental dose-optimization program, which includes automated exposure control, adjustment of the mA and/or kV according to patient size and/or use of iterative reconstruction technique. Abdomen Ultrasound 12/01/19 05:08 IMPRESSION: Layering sludge in the gallbladder lumen. No gallstones. Negative sonographic Sol sign. Trace of perinephric fluid adjacent to the right kidney. Findings are nonspecific. copyright 2010 [employer]- All Rights Reserved Plan Health Concerns: No acute concerns regarding this admission Plan of Treatment: Complete antibiotic therapy as an outpatient. Encouraged patient to stay well- hydrated and utilize probiotics while on antibiotics. She needs to establish with a primary care provider. Goals: Complete resolution of pyelonephritis Time Spent: Greater than 30 Minutes Stroke Is this a Stroke Patient?: No Acute Heart Failure - Is this a Heart Failure Patient?: No
[2019-12-02] MEDS: CEFTRIAXONE 2 GM/D5W RTU 2 GM/50 ML RTUPB IV SCH (09:20)
[2019-12-02] MEDS: MULTIVITAMINS W-IRON TABLET, CHEWABLE PO SCH (09:21)
[2019-12-02] MEDS: LACTOBACILLUS ACIDOPHILUS 250 MG TAB PO SCH (09:21)
[2019-12-02] MEDS: ENOXAPARIN SODIUM INJ 40 MG/0.4 ML DISP.SYRIN SUBCUT SCH (09:28)
== END 2019-12-02 11:13 | disposition home or self-care (01) | DRG 690 ==
LOC: ER 20:46 → EH 12-01 09:06 → 3W 12-01 10:27
PROVIDERS: ADMIT Hospitalist; ATTEND Hospitalist
DX: N10 Acute pyelonephritis (principal); E87.1 Hypo-osmolality and hyponatremia; B96.20 Unspecified Escherichia coli [E. coli] as the cause of diseases classified elsewhere; D64.9 Anemia, unspecified; R00.1 Bradycardia, unspecified; I95.0 Idiopathic hypotension
CPT/HCPCS: 36415; 71045; 74176; 76705; 80048; 80053; 81001; 82803; 83605; 83690; 83735; 84703; 85025; 85610; 87040; 87070; 87086; 87088; 87186; 87804; 87880; 93005; 93010; 96360; 96361; 99285; J0696; J1885; J2405; J3490; J7030; J7120

== ENCOUNTER 2020-05-01 13:16 | Emergency (ER) | payer MEDICAID ==
[2020-05-01] MEDS ORDERED: ONDANSETRON HCL INJ/PF 4 MG/2 ML SDV IV ONE (13:57)
[2020-05-01] MEDS ORDERED: NORMAL SALINE 1000 ML 1,000 ML IV ONE ×2 (13:57→15:08)
[2020-05-01] MEDS ORDERED: KETOROLAC TROMETHAMINE INJ/PF 30 MG/1 ML SDV IV ONE (13:58)
--- NOTE | 2020-05-01 14:06 | ER Document Report ---
ED GI/ - General Chief Complaint: Flank Pain Stated Complaint: FLANK PAIN,FEVER,HEAD PAIN Time Seen by Provider: 05/01/20 13:41 Primary Care Provider: WINIFRED LEAL MD [NO LOCAL MD] - Follow up tomorrow Mode of Arrival: Ambulatory Information source: Patient Notes: Patient presents complaining of left lateral side pain that started yesterday. Patient states pain is at a 4 out of 5 scale. Patient denies any abdominal pain or flank pain. Patient reports nausea with urinary frequency. Patient denies any vaginal discharge symptoms. TRAVEL OUTSIDE OF THE [place] IN LAST 30 DAYS: No - HPI Patient complains to provider of: Other - Left lateral side pain. No: Abdominal pain, Flank pain, Pelvic pain, , Vomiting Onset: Yesterday Timing/Duration: Persistent Quality of pain: Achy Pain Level: 4 Location: Other - Left lateral side Vaginal bleeding (Compared to normal period): None Associated symptoms: Nausea, Urinary frequency. denies: Diarrhea, Fever, Urinary hesitancy, Urinary retention, Urinary urgency, Vaginal discharge, Vomiting Exacerbated by: Denies Relieved by: Denies Similar symptoms previously: No Recently seen / treated by doctor: No - Related Data Allergies/Adverse Reactions: No Known Allergies Allergy (Verified 05/01/20 13:47) Past Medical History - General Information source: Patient - Social History Smoking Status: Never Smoker Chew tobacco use (# tins/day): No Drug Abuse: None Occupation: None Lives with: Family Family History: Reviewed & Not Pertinent Patient has homicidal ideation: No - Medical History Medical History: Negative Renal/ Medical History: Denies: Hx Peritoneal Dialysis Psychiatric Medical History: Denies: Hx Depression Past Surgical History: Reports: Hx Oral Surgery - Immunizations Immunizations up to date: Yes Hx Diphtheria, Pertussis, Tetanus Vaccination: Yes Review of Systems - Review of Systems Constitutional: No symptoms reported. denies: Fever EENT: No symptoms reported Cardiovascular: No symptoms reported Respiratory: No symptoms reported Gastrointestinal: Nausea. denies: Abdominal pain, Vomiting Genitourinary: Frequency, Other - Lateral side pain Female Genitourinary: No symptoms reported Musculoskeletal: No symptoms reported Skin: No symptoms reported Hematologic/Lymphatic: No symptoms reported Neurological/Psychological: No symptoms reported Physical Exam - Vital signs Vitals: Temp Pulse Resp BP Pulse Ox 98.8 F 72 16 88/48 L 100 05/01/20 13:36 05/01/20 13:36 05/01/20 13:36 05/01/20 13:36 05/01/20 13:36 - General General appearance: Appears well, Alert In distress: None - HEENT Head: Normocephalic, Atraumatic Eyes: Normal Conjunctiva: Normal Nasal: Normal Mouth/Lips: Normal Pharynx: Normal Neck: Normal, Supple. No: Lymphadenopathy - Respiratory Respiratory status: No respiratory distress Chest status: Nontender Breath sounds: Normal. No: Rales, Rhonchi, Stridor, Wheezing Chest palpation: Normal - Cardiovascular Rhythm: Regular Heart sounds: S1 appreciated, S2 appreciated Murmur: No - Abdominal Inspection: Normal Distension: No distension Bowel sounds: Normal Tenderness: Nontender Organomegaly: No organomegaly - Back Back: Tender - Left lateral side tenderness. No: CVA tenderness - Extremities General upper extremity: Normal inspection, Nontender, Normal ROM General lower extremity: Normal inspection, Nontender, Normal ROM - Neurological Neuro grossly intact: Yes Cognition: Normal [place] Coma Scale Eye Opening: Spontaneous [place]oise Coma Scale Verbal: Oriented [place] Coma Scale Motor: Obeys Commands Eloise Coma Scale Total: 15 - Psychological Associated symptoms: Normal affect, Normal mood - Skin Skin Temperature: Warm Skin Moisture: Dry Skin Color: Normal Course - Re-evaluation Re-evalutation: 05/01/20 17:46 Patient with pyelonephritis without any fever. Patient is anxious to be discharged at this time. Offered patient admission given her symptoms and her blood pressure that is currently 90/50s. Patient declines admission at this time insisting that she has to leave. Patient denies any lightheadedness or dizziness. Patient is afebrile at this time. Discussed worsening signs or symptoms that patient should return immediately for. Patient verbalized understanding of instructions. - Vital Signs Vital signs: Temp Pulse Resp BP Pulse Ox 98.5 F 50 L 16 91/53 L 100 05/01/20 17:54 05/01/20 17:54 05/01/20 17:54 05/01/20 17:54 05/01/20 17:54 - Laboratory Result Diagrams: 05/01/20 14:10 05/01/20 14:10 Laboratory results interpreted by me: 05/01/20 05/01/20 14:03 14:10 WBC 10.7 H Urine Blood LARGE H Urine Nitrite POSITIVE H Ur Leukocyte Esterase MODERATE H Labs- All tests 24 hr 05/01/20 05/01/20 05/01/20 14:03 14:03 14:10 WBC 10.7 H RBC 4.21 Hgb 12.1 Hct 36.0 MCV 85 MCH 28.8 MCHC 33.7 RDW 13.4 Plt Count 179 Lymph % (Auto) 14.7 [place] % (Auto) 10.4 Eos % (Auto) 0.1 Baso % (Auto) 0.2 Absolute Neuts (auto) 8.0 Absolute Lymphs (auto) 1.6 Absolute Monos (auto) 1.1 Absolute Eos (auto) 0.0 Absolute Basos (auto) 0.0 Seg Neutrophils % 74.6 Sodium Potassium Chloride Carbon Dioxide Anion Gap BUN Creatinine Est GFR ( Amer) Est GFR (MDRD) Non-Af Glucose Calcium Total Bilirubin Direct Bilirubin Neonat Total Bilirubin Neonat Direct Bilirubin Neonat Indirect Bili AST ALT Alkaline Phosphatase Total Protein Albumin Serum HCG, Qual Urine Color YELLOW Urine Appearance SLIGHTLY-CLOUDY Urine pH 5.0 Ur Specific [place] 1.014 Urine Protein NEGATIVE Urine Glucose (UA) NEGATIVE Urine Ketones NEGATIVE Urine Blood LARGE H Urine Nitrite POSITIVE H Urine Bilirubin NEGATIVE Urine Urobilinogen NEGATIVE Ur Leukocyte Esterase MODERATE H Urine WBC (Auto) 47 Urine RBC (Auto) 108 Urine Bacteria (Auto) 1+ Squamous Epi Cells Auto <1 Urine Mucus (Auto) RARE Urine Ascorbic Acid NEGATIVE Chlamydia DNA (PCR) NOT DETECTED N.gonorrhoeae DNA (PCR) NOT DETECTED 05/01/20 05/01/20 14:10 14:10 WBC RBC Hgb Hct MCV MCH MCHC RDW Plt Count Lymph % (Auto) [place] % (Auto) Eos % (Auto) Baso % (Auto) Absolute Neuts (auto) Absolute Lymphs (auto) Absolute Monos (auto) Absolute Eos (auto) Absolute Basos (auto) Seg Neutrophils % Sodium 141.5 Potassium 4.0 Chloride 105 Carbon Dioxide 29 Anion Gap 8 BUN 11 Creatinine 1.01 Est GFR ( Amer) > 60 Est GFR (MDRD) Non-Af > 60 Glucose 76 Calcium 9.0 Total Bilirubin 0.8 Direct Bilirubin 0.0 Neonat Total Bilirubin Not Reportable Neonat Direct Bilirubin Not Reportable Neonat Indirect Bili Not Reportable AST 23 ALT 9 Alkaline Phosphatase 59 Total Protein 7.3 Albumin 3.9 Serum HCG, Qual NEGATIVE Urine Color Urine Appearance Urine pH Ur Specific [place] Urine Protein Urine Glucose (UA) Urine Ketones Urine Blood Urine Nitrite Urine Bilirubin Urine Urobilinogen Ur Leukocyte Esterase Urine WBC (Auto) Urine RBC (Auto) Urine Bacteria (Auto) Squamous Epi Cells Auto Urine Mucus (Auto) Urine Ascorbic Acid Chlamydia DNA (PCR) N.gonorrhoeae DNA (PCR) - Diagnostic Test Radiology reviewed: Reports reviewed Discharge - Discharge Clinical Impression: Pyelonephritis Condition: Stable Disposition: HOME, SELF-CARE Instructions: Antinausea Medication ([facility]), Pyelonephritis ([facility]), Rocephin ([facility]), Trimethoprim-Sulfa ([facility]) Additional Instructions: Return immediately for any new or worsening symptoms: Fever, vomiting, worsening pain, lightheadedness dizziness or any concerning new symptoms Followup with your primary care provider, call tomorrow to make a followup appo intment Urine culture is pending, we will call if you need any different treatment Prescriptions: Sulfamethoxazole/Trimethoprim [Bactrim Ds Tablet] 1 each PO BID #20 tablet Cefdinir 300 mg PO BID #20 capsule Ondansetron [Zofran Odt 4 mg Tablet] 1 tab PO Q6H #15 tab.rapdis Referrals: WINIFRED LEAL MD [NO LOCAL MD] - Follow up tomorrow
[2020-05-01 14:28] LABS: ABSOLUTE LYMPHOCYTES (AUTO) 1.6 10^3/uL (0.5-4.7); ABSOLUTE MONOCYTES (AUTO) 1.1 10^3/uL (0.1-1.4); BASOPHILS % (AUTO) 0.2 % (0-2); EOSINOPHILS % (AUTO) 0.1 % (0-6); HEMOGLOBIN 12.1 g/dL (12.0-15.5); LYMPHOCYTES % (AUTO) 14.7 % (13-45); MEAN CORPUSCULAR HEMOGLOBIN 28.8 pg (27.0-33.4); MEAN CORPUSCULAR HGB CONC 33.7 g/dL (32.0-36.0); MEAN CORPUSCULAR VOLUME 85 fl (80-97); MONOCYTES % (AUTO) 10.4 % (3-13); PLATELET COUNT 179 10^3/uL (150-450); RED BLOOD COUNT 4.21 10^6/uL (3.72-5.28); RED CELL DISTRIBUTION WIDTH 13.4 % (11.5-14.0); SEGMENTED NEUTROPHILS % (AUTO) 74.6 % (42-78); TOTAL CELLS COUNTED % (AUTO) 100 %; WHITE BLOOD COUNT 10.7 10^3/uL (4.0-10.5)
[2020-05-01 14:35] LABS: APPEARANCE,URINE SLIGHTLY-CLOUDY; BILIRUBIN,URINE NEGATIVE (NEGATIVE); COLOR,URINE YELLOW; GLUCOSE, URINE NEGATIVE (NEGATIVE); KETONES,URINE NEGATIVE (NEGATIVE); LEUKOCYTE ESTERASE,URINE MODERATE (NEGATIVE); NITRITE,URINE POSITIVE (NEGATIVE); PROTEIN,URINE NEGATIVE (NEGATIVE); URINE SPECIFIC GRAVITY 1.014; UROBILINOGEN,URINE NEGATIVE mg/dL (<2.0)
[2020-05-01 14:48] LABS: ALBUMIN 3.9 g/dL (3.5-5.0); ALKALINE PHOSPHATASE 59 U/L (38-126); ANION GAP 8 (5-19); ASPARTATE AMINO TRANSFERASE 23 U/L (14-36); BILIRUBIN,TOTAL 0.8 mg/dL (0.2-1.3); BLOOD UREA NITROGEN 11 mg/dL (7-20); CARBON DIOXIDE 29 mmol/L (22-30); CHLORIDE 105 mmol/L (98-107); GLUCOSE 76 mg/dL (75-110); TOTAL PROTEIN 7.3 g/dL (6.3-8.2)
[2020-05-01] MEDS ORDERED: CEFTRIAXONE 1 GM/D5W RTU 1 GM/50 ML RTUPB IV ONE (14:48)
[2020-05-01 15:59] LABS: CHLAM PCR NOT DETECTED (NOT DETECT)
--- NOTE | 2020-05-01 17:33 | RADIOLOGY REPORT (SQ) ---
EXAM DESCRIPTION: CT ABD/PELVIS NO ORAL OR IV IMAGES COMPLETED DATE/TIME: 05/01/2020 4:17 pm REASON FOR STUDY: L flank pain, UTI COMPARISON: 12/01/2019. TECHNIQUE: CT scan of the abdomen and pelvis performed without intravenous or oral contrast. Images reviewed with lung, soft tissue, and bone windows. Reconstructed coronal and sagittal MPR images revi ewed. All images stored on PACS. All CT scanners at this facility use dose modulation, iterative reconstruction, and/or weight based d osing when appropriate to reduce radiation dose to as low as reasonably achievable (ALARA). [facility]: Dose Right [facility]: CareDose [facility]: Dose Right [facility]: Teradose 4D [facility]: Smart [employer] RADIATION DOSE: CT Rad equipment meets quality standard of care and radiation dose reduction techniq ues were employed. CTDIvol: 5.0 mGy. DLP: 246 mGy-cm.mGy. LIMITATIONS: None. FINDINGS: LOWER CHEST: No significant findings. No nodules or infiltrates. NON-CONTRASTED LIVER, SPLEEN, ADRENALS: Evaluation limited by lack of IV contrast. No identified sign ificant masses. PANCREAS: No masses. No peripancreatic inflammatory changes. GALLBLADDER: No identified stones by CT criteria. No inflammatory changes to suggest cholecystitis. RIGHT KIDNEY AND URETER: No suspicious masses. Assessment limited by lack of IV contrast. No signif icant calcifications. No hydronephrosis or hydroureter. LEFT KIDNEY AND URETER: No suspicious masses. Assessment limited by lack of IV contrast. No signifi cant calcifications. No hydronephrosis or hydroureter. AORTA AND RETROPERITONEUM: No aneurysm. No retroperitoneal masses or adenopathy. BOWEL AND PERITONEAL CAVITY: No obvious masses or inflammatory changes. No free fluid. APPENDIX: Normal. PELVIS, BLADDER, AND ABDOMINAL WALL:No abnormal masses. No free fluid. Bladder normal. BONES: No significant findings. OTHER: No other significant finding. IMPRESSION: 1. No renal or ureteral calculi. No CT abnormality to explain the patient's pain. COMMENT: Quality ID # [id number]: Final reports with documentation of one or more dose reduction techniques (e.g., Automated exposure control, adjustment of the mA and/or kV according to patient size, use of iterative reconstruction technique) TECHNICAL DOCUMENTATION: JOB ID: [id number] 2010 [employer]- All Rights Reserved Reading location - IP/workstation name: [email or web address]
[2020-05-01 17:56] VITALS: BP 91/53
== END 2020-05-01 18:04 | disposition home or self-care (01) ==
LOC: ER 13:16
DX: N12 Tubulo-interstitial nephritis, not specified as acute or chronic (principal); R11.0 Nausea; R35.0 Frequency of micturition
CPT/HCPCS: 99285; 96361; 96375; 96365; 36415; 87086; 84703; 85025; 87088; 80053; 81001; 87186; 87491; 87591; 74176; J1885; J2405; J7030; J0696

== ENCOUNTER 2020-08-29 01:29 | Emergency (ER) | payer MEDICAID ==
[2020-08-29 01:44] VITALS: BP 96/57
[2020-08-29 02:43] LABS: ABSOLUTE LYMPHOCYTES (AUTO) 2.8 10^3/uL (0.5-4.7); ABSOLUTE MONOCYTES (AUTO) 0.6 10^3/uL (0.1-1.4); ABSOLUTE NEUT (AUTO) 4.4 10^3/uL (1.7-8.2); BASOPHILS % (AUTO) 0.3 % (0-2); EOSINOPHILS % (AUTO) 0.4 % (0-6); HEMATOCRIT 34.7 % (36.0-47.0); HEMOGLOBIN 11.5 g/dL (12.0-15.5); LYMPHOCYTES % (AUTO) 35.6 % (13-45); MEAN CORPUSCULAR HEMOGLOBIN 28.6 pg (27.0-33.4); MEAN CORPUSCULAR HGB CONC 33.2 g/dL (32.0-36.0); MEAN CORPUSCULAR VOLUME 86 fl (80-97); MONOCYTES % (AUTO) 8.2 % (3-13); PLATELET COUNT 157 10^3/uL (150-450); RED BLOOD COUNT 4.03 10^6/uL (3.72-5.28); RED CELL DISTRIBUTION WIDTH 13.9 % (11.5-14.0); SEGMENTED NEUTROPHILS % (AUTO) 55.5 % (42-78); TOTAL CELLS COUNTED % (AUTO) 100 %; WHITE BLOOD COUNT 7.8 10^3/uL (4.0-10.5)
[2020-08-29 02:56] LABS: ALBUMIN 3.7 g/dL (3.5-5.0); ALKALINE PHOSPHATASE 54 U/L (38-126); ANION GAP 7 (5-19); ASPARTATE AMINO TRANSFERASE 21 U/L (14-36); BILIRUBIN,DIRECT 0.1 mg/dL (0.0-0.4); BILIRUBIN,TOTAL 0.5 mg/dL (0.2-1.3); BLOOD UREA NITROGEN 10 mg/dL (7-20); CALCIUM 9.2 mg/dL (8.4-10.2); CARBON DIOXIDE 26 mmol/L (22-30); CHLORIDE 107 mmol/L (98-107); GLUCOSE 83 mg/dL (75-110); POTASSIUM 3.8 mmol/L (3.6-5.0); TOTAL PROTEIN 6.9 g/dL (6.3-8.2)
[2020-08-29 03:23] LABS: APPEARANCE,URINE CLEAR; BILIRUBIN,URINE NEGATIVE (NEGATIVE); COLOR,URINE YELLOW; GLUCOSE, URINE NEGATIVE (NEGATIVE); KETONES,URINE NEGATIVE (NEGATIVE); LEUKOCYTE ESTERASE,URINE SMALL (NEGATIVE); NITRITE,URINE NEGATIVE (NEGATIVE); PROTEIN,URINE NEGATIVE (NEGATIVE); URINE SPECIFIC GRAVITY 1.014; UROBILINOGEN,URINE NEGATIVE mg/dL (<2.0)
== END 2020-08-29 03:03 | disposition left against medical advice (07) ==
LOC: ER 01:29
DX: Z53.21 Procedure and treatment not carried out due to patient leaving prior to being seen by health care provider (principal)
CPT/HCPCS: 36415; 80053; 81001; 81025; 83690; 85025

== ENCOUNTER 2020-09-01 18:01 | Emergency (ER) | payer MEDICAID ==
--- NOTE | 2020-09-01 18:24 | ER Document Report ---
ED Medical Screen (RME) - General Chief Complaint: Headache Stated Complaint: HEADACHE Time Seen by Provider: 09/01/20 18:10 Mode of Arrival: Ambulatory Information source: Patient Notes: Patient is a 29-year-old female comes emergency room with multiple complaints primarily complaint is lightheaded and dizzy. Patient states she also has a headache that started last night is not going away on Tylenol. She denies any nausea or vomiting. She denies any visual changes. She does state that she is dizzy when she goes from moving to standing up or laying down. She states she is eating and drinking well. Patient denies any medical problems and is currently taking no medications. She does admit to smoking. Physical examination: Patient is a thin appearing 29-year-old female no apparent distress on examination. Cardiac: Patient has a slightly bradycardic rate at 58 bpm on monitor. No murmurs auscultated. Lungs: Bilateral breath sounds breath sounds increased clear to auscultation. Abdomen: Bowel sounds present all 4 quads nontender to palpate. Neuro: Patient is awake alert and oriented x4. She has no focal deficits I have greeted and performed a rapid initial assessment of this patient. A comprehensive ED assessment and evaluation of the patient, analysis of test results and completion of the medical decision making process will be conducted by additional ED providers. Dictation of this chart was performed using voice recognition software; therefore, there may be some unintended grammatical errors. Given the patient has no headache history this is not the worst headache of her life she has had no visual changes or nausea or vomiting I do not feel necessary to do a CT at this time. TRAVEL OUTSIDE OF THE [place] IN LAST 30 DAYS: No - Related Data Allergies/Adverse Reactions: No Known Allergies Allergy (Verified 09/01/20 18:11) Past Medical History Renal/ Medical History: Denies: Hx Peritoneal Dialysis Psychiatric Medical History: Denies: Hx Depression Past Surgical History: Reports: Hx Oral Surgery - Immunizations Immunizations up to date: Yes Hx Diphtheria, Pertussis, Tetanus Vaccination: Yes Physical Exam - Vital signs Vitals: Temp Pulse Resp BP Pulse Ox 98.6 F 58 L 20 105/63 100 09/01/20 18:06 09/01/20 18:06 09/01/20 18:06 09/01/20 18:06 09/01/20 18:06 Course - Vital Signs Vital signs: Temp Pulse Resp BP Pulse Ox 98.6 F 58 L 20 105/63 100 09/01/20 18:06 09/01/20 18:06 09/01/20 18:06 09/01/20 18:06 09/01/20 18:06
[2020-09-01 19:01] LABS: ABSOLUTE LYMPHOCYTES (AUTO) 1.1 10^3/uL (0.5-4.7); ABSOLUTE MONOCYTES (AUTO) 0.7 10^3/uL (0.1-1.4); ABSOLUTE NEUT (AUTO) 2.9 10^3/uL (1.7-8.2); EOSINOPHILS % (AUTO) 0.1 % (0-6); MEAN CORPUSCULAR VOLUME 87 fl (80-97); PLATELET COUNT 159 10^3/uL (150-450); SEGMENTED NEUTROPHILS % (AUTO) 62.6 % (42-78); TOTAL CELLS COUNTED % (AUTO) 100 %; WHITE BLOOD COUNT 4.7 10^3/uL (4.0-10.5)
[2020-09-01 19:06] LABS: BASOPHILS % (AUTO) 0.4 % (0-2); HEMATOCRIT 37.7 % (36.0-47.0); HEMOGLOBIN 12.5 g/dL (12.0-15.5); LYMPHOCYTES % (AUTO) 22.8 % (13-45); MEAN CORPUSCULAR HEMOGLOBIN 28.8 pg (27.0-33.4); MEAN CORPUSCULAR HGB CONC 33.3 g/dL (32.0-36.0); MONOCYTES % (AUTO) 14.1 % (3-13); RED BLOOD COUNT 4.35 10^6/uL (3.72-5.28)
[2020-09-01 19:09] LABS: APPEARANCE,URINE SLIGHTLY-CLOUDY; BILIRUBIN,URINE NEGATIVE (NEGATIVE); COLOR,URINE YELLOW; GLUCOSE, URINE NEGATIVE (NEGATIVE); KETONES,URINE NEGATIVE (NEGATIVE); LEUKOCYTE ESTERASE,URINE NEGATIVE (NEGATIVE); NITRITE,URINE POSITIVE (NEGATIVE); PROTEIN,URINE NEGATIVE (NEGATIVE); UROBILINOGEN,URINE NEGATIVE mg/dL (<2.0)
[2020-09-01 19:22] LABS: ALKALINE PHOSPHATASE 59 U/L (38-126); ANION GAP 7 (5-19); ASPARTATE AMINO TRANSFERASE 26 U/L (14-36); BILIRUBIN,DIRECT 0.1 mg/dL (0.0-0.4); BILIRUBIN,TOTAL 0.4 mg/dL (0.2-1.3); BLOOD UREA NITROGEN 8 mg/dL (7-20); CARBON DIOXIDE 26 mmol/L (22-30); CHLORIDE 108 mmol/L (98-107); GLUCOSE 79 mg/dL (75-110); POTASSIUM 4.1 mmol/L (3.6-5.0); TOTAL PROTEIN 7.4 g/dL (6.3-8.2)
[2020-09-01] MEDS ORDERED: LEVOFLOXACIN 750 MG TABLET PO ONE (20:24)
[2020-09-01] MEDS ORDERED: PREDNISONE 20 MG TABLET PO ONE (20:24)
--- NOTE | 2020-09-01 20:31 | ER Document Report ---
ED General - General Chief Complaint: Headache Stated Complaint: HEADACHE Time Seen by Provider: 09/01/20 18:10 Mode of Arrival: Ambulatory TRAVEL OUTSIDE OF THE [place] IN LAST 30 DAYS: No - HPI Context: Time:2019 Chief Complaint: [Headache, facial pain] [29-year-old female presents complaining of 2 days of headache that she localizes to her forehead and facial pain that she localizes to her face in the region of her maxillary sinuses bilaterally. Patient states she has also been trying to get for the past 3 months and it is curious to know if she is . Patient denies purulent discharge when she blows her nose. ] History obtained from [patient] Symptoms began:[2 days ago] Onset: [Gradual] Timing: [Gradual] Quality: [Aching] Intensity: [3] Location: [Forehead and face] Radiation: [Denies] [The pain does not migrate to a new location.] Aggravating factors: [none] Relieving factors: [none] [Denies] SOB [Denies] nausea [Denies] vomiting [Denies] sweats [Denies] fever [Denies] cough [Denies] calf or leg swelling or pain - Related Data Allergies/Adverse Reactions: No Known Allergies Allergy (Verified 09/01/20 18:11) Past Medical History - General Information source: Patient - Social History Smoking Status: Current Some Day Smoker Family History: Reviewed & Not Pertinent Renal/ Medical History: Denies: Hx Peritoneal Dialysis Psychiatric Medical History: Denies: Hx Depression Past Surgical History: Reports: Hx Oral Surgery - Immunizations Immunizations up to date: Yes Hx Diphtheria, Pertussis, Tetanus Vaccination: Yes Review of Systems - Review of Systems Notes: Review of systems as below unless otherwise stated in HPI. CONSTITUTIONAL [No] fever, [No] chills. EYES [No] eye pain. ENT [No] URI symptoms, [No] sore throat, [No] ear pain. Positive facial pain, positive nasal congestion CARDIOVASCULAR [No] chest pain, [No] palpitations, [No] edema. RESPIRATORY [No] Cough, [No] SOB, [No] wheezing. GASTROINTESTINAL [No] abdominal pain, [No] nausea, [No] Diarrhea, [No] Vomiting, [No] constipation, [No] melena, [No] rectal bleeding. GENITOURINARY [No] dysuria, [No] urinary frequency, [No] hematuria, [No] urinary urgency, [No] vaginal discharge, [No] vaginal bleeding. MUSCULOSKELETAL [No] Back pain. SKIN [No] Rash. NEUROLOGIC Positive headache, [No] recent seizures, [No] paralysis,[No] parathesias. ENDOCRINE [No] polyuria. HEMO/LYMPATIC [No] easy brusing PSYCHIATRIC [No] depression. Physical Exam - Vital signs Vitals: Temp Pulse Resp BP Pulse Ox 98.6 F 58 L 20 105/63 100 09/01/20 18:06 09/01/20 18:06 09/01/20 18:06 09/01/20 18:06 09/01/20 18:06 - Notes Notes: CONSTITUTIONAL [Vital signs reviewed, Patient appears comfortable, Alert and oriented X 3, Normal stature. Patient is looking at her cell phone and is somewhat distracted by technology] HEAD [Atraumatic, Normocephalic.] EYES [Eyes are normal to inspection, No discharge from eyes, Extraocular muscles intact, Sclera are normal, Conjunctiva are normal.] ENT [External ears normal to inspection, Nose examination significant for boggy appearing nasal mucosa bilaterally that is erythematous, positive tenderness to light percussion of maxillary sinuses bilaterally mouth normal to inspection.] NECK [Normal ROM, No jugular venous distention, No meningeal signs, ] RESPIRATORY CHEST [Chest is nontender, Breath sounds normal, No respiratory distress.] CARDIOVASCULAR [RRR, No murmurs, Normal S1 S2, No rub, No gallop.] ABDOMEN [Abdomen is nontender, No pulsatile masses, No other masses, Bowel sounds normal, No distension, No peritoneal signs, No hernias.] BACK [There is no CVA Tenderness, There is no tenderness to palpation, Normal inspection.] UPPER EXTREMITY [Inspection normal, No cyanosis, No clubbing, No edema, LOWER EXTREMITY [Inspection normal, No cyanosis, No clubbing, No edema, No calf tenderness, NEURO [No focal motor deficits, No focal sensory deficits, Speech normal.] SKIN [Skin is warm, Skin is dry, Skin is normal color.] PSYCHIATRIC [Normal affect. ] - HEENT Visual acuity- Right eye: 20/20 Visual acuity- Left eye: 20/20 Visual acuity- Both eyes: 20/20 Corrective lenses worn: No Course - Re-evaluation Re-evalutation: 09/01/20 20:29 Results of ED MSE discussed with patient. All questions were answered prior to discharge. Patient was instructed not to have intercourse while taking Levaquin. Emergency signs and symptoms, reasons to return to the emergency department discussed with patient. - Vital Signs Vital signs: Temp Pulse Resp BP Pulse Ox 98.6 F 58 L 20 105/63 100 09/01/20 18:06 09/01/20 18:06 09/01/20 18:06 09/01/20 18:06 09/01/20 18:06 - Laboratory Results Result Diagrams: 09/01/20 18:41 09/01/20 18:41 Laboratory Results Interpreted: 09/01/20 09/01/20 09/01/20 18:41 18:41 18:41 [place] % (Auto) 14.1 H Chloride 108 H Urine Nitrite POSITIVE H Critical Laboratory Results Reviewed: No Critical Results - Patient's urine test is negative and urinalysis is positive for white blood cells and nitrites Attending or Supervising Physician who Reviewed Labs: AYSHA JAQUEZ IV - Radiology Results Critical Radiology Results Reviewed: No Critical Results Attending or Supervising Physician who Reviewed Radiology: AYSHA JAQUEZ IV Discharge - Discharge Clinical Impression: Urine test negative Acute maxillary sinusitis Qualifiers: Recurrence: not specified as recurrent Qualified Code(s): J01.00 - Acute maxillary sinusitis, unspecified UTI (urinary tract infection) Qualifiers: Urinary tract infection type: site unspecified Hematuria presence: without hematuria Qualified Code(s): N39.0 - Urinary tract infection, site not specified Condition: Stable Disposition: HOME, SELF-CARE Instructions: Urinary Tract Infection ([facility]) Additional Instructions: Return to the Emergency Department without delay if any worse. HOME CARE INSTRUCTIONS & INFORMATION: Thank you for choosing us for your medical needs. We hope you're satisfied with the care you received. After you leave, you must properly care for your problem and, at the same time, observe its progress. Any condition can change. Some illnesses can change rapidly over hours or days. If your condition worsens, return to the Emergency Department or see your physician promptly. ABOUT YOUR X-RAYS AND EKG'S: If you had an EKG or X-rays taken, they have been read by the Emergency Physician. The X-rays and EKG's will also be read by a Radiologist or Inspector Government Property within 24 hours. If discrepancies are noted, you will be notified by telephone. Please be certain the ED has a correct telephone number & address where you can be reached. Also, realize that some fractures or abnormalities do not show up on initial X-rays. If your symptoms continue, see your physician. ABOUT YOUR LABORATORY TEST: If you had laboratory tests, the results have been reviewed by the Emergency Physician. Some test results (for example cultures) may not be available for several days. You will be contacted if any test result shows you need additional treatment. Please be certain the ED has a correct telephone number and address where you can be reached. ABOUT YOUR MEDICATIONS: You will receive instructions on how to take your medicine on the prescription label you receive. Additional information may be provided by the Pharmacy. If you have questions afterwards, call the ED for clarification or further instructions. Some prescribed medications may cause drowsiness. Do not perform tasks such as driving a car or operating machinery without consulting your Pharmacist. If you feel you need a refill of pain medication, your condition will need re-evaluation. Please do not call for a refill of any medication. ABOUT YOUR SIGNATURE: Signature of this document acknowledges to followin. Understanding that you received emergency treatment and that you may be released before al medical problems are known or treated. Please be certain the ED has a correct phone number & address where you can be reached. 2. Acknowledgement that you will arrange for follow-up care as recommended. 3. Authorization for the Emergency Physician to provide information to your follow-up Physician in order to maximize your care. AT ANY TIME, IF YOUR SYMPTOMS CHANGE SIGNIFICANTLY OR WORSEN OR YOU DEVELOP NEW SYMPTOMS, RETURN TO THE EMERGENCY DEPARTMENT IMMEDIATELY FOR RE-EVALUATION. OUR GOAL IS TO PROVIDE EXCELLENT MEDICAL CARE! WE HOPE THAT WE HAVE MET YOUR EXPECTATIONS DURING YOUR EMERGENCY DEPARTMENT VISIT AND THAT YOU FEEL YOU HAVE RECEIVED EXCELLENT CARE! Sinusitis You have sinusitis, an infection of the sinus cavities of the face. The sinuses are air-filled chambers which open into the inside of the nose. Bacteria and pus fill a sinus, causing pain, drainage, and fever. Sinusitis is treated with antibiotics. Often, expectorants (to thin the sinus mucous) or decongestants (to reduce swelling) are prescribed as well. Healing requires seven to 10 days. Avoid chemical fumes, pollens, dusts, and smoke (especially cigarette smoke). Keep the air humidified in your bedroom and work area and take plenty of liquids by mouth. This condition can be serious if the infection spreads. If your symptoms worsen, or if you develop severe headache, high fever, stiff neck, or a rash, you must call the doctor or return for re-evaluation. Prescriptions: Prednisone [Deltasone 20 mg Tablet] 2 tab PO DAILY 4 Days #8 tablet Levofloxacin [Levaquin 750 mg Tablet] 750 mg PO DAILY 4 Days #4 tablet Referrals: MICKIE PITTS MD [[facility]ON[facility]] - Follow up as needed
[2020-09-01 21:18] VITALS: BP 108/63
== END 2020-09-01 21:18 | disposition home or self-care (01) ==
LOC: ER 18:01
DX: N39.0 Urinary tract infection, site not specified (principal); J01.00 Acute maxillary sinusitis, unspecified; R51.9 Headache, unspecified; F17.200 Nicotine dependence, unspecified, uncomplicated
CPT/HCPCS: 99283; 36415; 87086; 85025; 81025; 87088; 80053; 81001; J7512; J3490; 87186